=== PATIENT | male | born 1950 ===

== ENCOUNTER 2022-03-21 08:39 | Outpatient (REF) | payer OTHER, SELFPAY ==
[2022-03-21 11:44] LABS: Basophils Percent Auto 0.9 % (0-2); Eosinophils Percent Auto 0.4 % (0-4); Hematocrit 37.6 % (42.0-52.0); Hemoglobin 12.4 g/dl (14.0-18.0); Imm Gran Abs Auto 0.02 X10*3/uL (0.00-0.03); Imm Gran Pct Auto 0.9 % (0.0-0.4); Lymphocytes Absolute Auto 1.1 X10*3/uL (1.2-4.9); Lymphocytes Percent Auto 45.5 % (20-40); MANUAL DIFF FLAG SCAN; Mean Corpuscular Hemoglobin 32.5 pg (27.0-33.0); Mean Corpuscular Volume 98.4 fL (80.0-98.0); Monocytes Absolute Auto 0.7 X10*3/uL (0.1-1.2); Monocytes Percent Auto 27.9 % (2-11); Neutrophils Absolute Auto 0.6 x10*3/uL (2.0-8.3); Neutrophils Percent Auto 24.4 % (45-73); PLT CLUMP 1; Red Blood Count 3.82 X10*6/uL (4.60-5.80); Red Cell Distribution Width 25.9 % (11.0-16.0); SCAN SMEAR FLAG 1
[2022-03-21 11:58] LABS: Estimated Average Glucose 117 mg/dL; Hemoglobin A1c % 5.7 %
[2022-03-21 12:15] LABS: Alanine Aminotransferase 16 U/L (0-40); Albumin Level 4.6 g/dL (3.5-5.0); Alkaline Phosphatase 74 U/L (39-117); Anion Gap 12 (12-20); Aspartate Amino Transferase 19 U/L (5-37); Bilirubin Total 1.5 mg/dL (0.0-1.0); Blood Urea Nitrogen 17 mg/dL (9-16); Calcium 9.1 mg/dL (8.4-10.2); Carbon Dioxide 27 mmol/L (22-29); Chloride 104 mmol/L (96-108); Cholesterol 148 mg/dL; Estimated Glomerular Filt Rate > 60; Glucose Fasting 115 mg/dL (60-99); HDL Cholesterol 51 mg/dL; LDL Cholesterol Calculated 89 mg/dl; Potassium 4.3 mmol/L (3.3-5.1); Sodium 139 mmol/L (135-145); Total Protein 7.3 g/dL (6.5-8.0); Triglycerides 40 mg/dL
[2022-03-21 12:18] LABS: Platelet Count 171 X10*3/uL (160-400); White Blood Count 2.3 X10*3/uL (4.8-10.8)
[2022-03-21 12:19] LABS: SLIDE REVIEW VERIFIED
[2022-03-21 12:24] LABS: PSA,Total (Free>4and<10) 3.62 ng/mL (0.00-4.00)
== END 2022-03-21 08:40 | disposition home or self-care (01) ==
LOC: HO.HMGCLDS 08:39
PROVIDERS: PCP Internal Medicine; Visit Provider Internal Medicine
DX: Z00.00 Encounter for general adult medical examination without abnormal findings (principal); R73.9 Hyperglycemia, unspecified; D70.9 Neutropenia, unspecified; N40.0 Benign prostatic hyperplasia without lower urinary tract symptoms; Z12.5 Encounter for screening for malignant neoplasm of prostate
CPT/HCPCS: 36415; 80053; 80061; 83036; 84153; 85025

== ENCOUNTER 2023-04-24 12:06 | Outpatient (AMB) | payer MEDICARE, SELFPAY ==
--- NOTE | 2023-04-24 12:13 | A.OFFPC_ITS ---
Vital Signs 04/24/23 12:18 Height 5 ft 7 in Weight 156 lb 4 oz BMI 24.5 BP 130/64 Blood Pressure Location Rt brachial Position Sitting Pulse 92 Pulse Source Pulse Oximeter Pulse Oximetry (%) 97 Oxygen Delivery Method Room Air Intake Visit Reasons: back pain, freq urination Allergies sulfamethoxazole [From Bactrim] Adverse Reaction (Verified 04/24/23 12:13) Fatigued trimethoprim [From Bactrim] Adverse Reaction (Verified 04/24/23 12:13) Fatigued Medication List - Last Reconciled 04/24/23 by Katlin Villegas MD fluticasone propionate 50 mcg/actuation (Flonase Allergy Relief) 2 sprays intranasal DAILY tamsulosin 0.4 mg PO DAILY Tobacco use date assessed: 04/24/23 Fall risk assessment: No Falls in past year Last assessed Fall Risk: 04/24/23 Dental Screening Dental Screen Date: 04/24/23 Did you have a dental visit in the last 12 months?: Yes Did you have a dental problem in the last 6 months where you did not have access to dental care?: No Was dental information given to patient?: Patient has dentist HPI back pain, freq urination HPI Details Pt c/o L flank pain and increased urination for 24 hours. Patient denies fever chills abdominal pain dysuria or gross hematuria. PFSH Family History Mother Mental health disorder Social History Household Members Other:: , lives alone, Housing: House Patient Tobacco Use Status: Never used Tobacco e-Cigarette/Vaping Use: Never Used service: No Current occupational status: retired Cognitive needs: No Hearing needs: No Vision needs: Yes Questionnaire Thrive Questionnaire Date Thrive assessed: 03/21/22 AUDIT C Alcohol Use Questionnaire (AUDIT-C) 1. How often do you have a drink containing alcohol?: Never 3. How often do you have six or more drinks on one occasion?: Never Total Score: 0 ANNA-7 AMB Questionnaire ANNA-7 Date ANNA - 7 assessed: 03/21/22 Source: Developed by Drs. Alexandru Paniagua, Yeny Aerchiga, Gurdeep Crooks and colleagues, with an educational mine from [employer]. Review of Systems Const All systems reviewed & are unremarkable except as noted in HPI and below Eyes Reports no additional complaints ENT Reports no additional complaints Card Reports no additional complaints Resp Reports no additional complaints GI Reports no additional complaints Reports no additional complaints Musc Reports no additional complaints Physical exam (Primary Care) Vital Signs: Last Vital Signs Pulse 92 04/24/23 12:18 BP 130/64 04/24/23 12:18 Pulse Ox 97 04/24/23 12:18 Oxygen Delivery Method Room Air 04/24/23 12:18 BMI result Body Mass Index 24.5 Tobacco/Smoking Status: Tobacco use Status Tobacco use date assessed 04/24/23 04/24/23 12:15 Patient Tobacco Use Status Never used Tobacco 04/24/23 12:15 e-Cigarette/Vaping Use Never Used 04/24/23 12:15 Thrive Assessment: Date of Thrive Assessment Date Thrive assessed 03/21/22 04/24/23 12:15 Const General: no acute distress HENMT Head: Yes normal to inspection General nose exam: Normal external nose present Eyes General: appearance normal, both eyes and all related structures Resp Effort & Inspection: normal respiratory effort Auscultation: clear to auscultation bilaterally Cardio Rhythm: regular rhythm Heart sounds: S1 normal heart sound present and S2 normal heart sound present GI Other: L flank tenderness Inspection: Yes normal to inspection Palpation (GI): Soft to palpation Percussion: Yes normal to percussion Auscultation: normal bowel sounds Results AMB Urinalysis, Automated UA Leukoctes 0 Mark/uL Last Edit by [employer] on 04/24/23 12:55 UA Nitrite Negative Last Edit by [employer]CE[employer] Cevallos on 04/24/23 12:55 UA Urobilinogen 0.2 mg/dL Last Edit by [employer] Cevallos on 04/24/23 12: 55 UA Protein 0 mg/dL Last Edit by [employer]CE[employer] Cevallos on 04/24/23 12:55 UA pH 6.0 Last Edit by [employer]CE[employer] Cevallos on 04/24/23 12:55 UA Blood 25 Cricket/uL Last Edit by CONCE[employer] Cevallos on 04/24/23 12:55 1+ Adalgisa Fraga 04/24/23 12:55 UA Specific [place] 1.010 Last Edit by CONCEPCIÓN Cevallos on 04/24/23 12 :55 UA Ketone Negative Last Edit by CONCE[employer]ÓN Cevallos on 04/24/23 12:55 UA Bilirubin 0 mg/dL Last Edit by [employer]CE[employer]N Cevallos on 04/24/23 12:55 UA Glucose 0 mg/dL Last Edit by [employer]CE[employer] Cevallos on 04/24/23 12:55 Assessment and Plan Assessment & Plan (1) Left flank pain: Code(s): R10.9 - Unspecified abdominal pain Plan: Urine dipstick was positive for blood. Urine culture will be obtained. Renal ultrasound will be checked to rule out obstruction. he was advised to increase fluid intake and increase tamsulosin to 0.8 mg a day. If ultrasound is positive for obstruction he will be referred to urology. Orders: Orders AMB Urinalysis Automated Today Z13.9 - Encounter for screening, unspecified Urine Culture Today R35.0 - Frequency of micturition PSA,Total (Free>4and<10) Today N40.0 - Benign prostatic hyperplasia without lower urinary tract symptoms US renal BI Today N40.0 - Benign prostatic hyperplasia without lower urinary tract symptoms, R10.9 - Unspecified abdominal pain, R73.9 - Hyperglycemia, unspecified Comprehensive Met. Panel Today N40.0 - Benign prostatic hyperplasia without lower urinary tract symptoms, R10.9 - Unspecified abdominal pain, R73.9 - Hyperglycemia, unspecified Hemoglobin A1c Today N40.0 - Benign prostatic hyperplasia without lower urinary tract symptoms, R10.9 - Unspecified abdominal pain, R73.9 - Hyperglycemia, unspecified Complete Blood Count Auto Diff Today N40.0 - Benign prostatic hyperplasia without lower urinary tract symptoms, R10.9 - Unspecified abdominal pain, R73.9 - Hyperglycemia, unspecified Medications: Changed From tamsulosin 0.4 mg PO DAILY 90 caps 3RF To tamsulosin 0.8 mg (2 x 0.4 mg) PO DAILY 180 caps 3RF Coding Level of Care Code Est Pt Level 3 (79995) Diagnoses Left flank pain R10.9
[2023-04-24 12:18] VITALS: BP 130/64; PULSE 92; O2SAT 97; BMI 24.5
== END 2023-04-24 13:21 | disposition home or self-care (01) ==
PROVIDERS: PCP Internal Medicine; Visit Provider Internal Medicine
DX: Z13.9 Encounter for screening, unspecified (principal); R10.9 Unspecified abdominal pain
CPT/HCPCS: 81003; 99213

== ENCOUNTER 2023-04-24 12:49 | Outpatient (REF) | payer MEDICARE, SELFPAY | END 2023-04-24 12:50 | disposition home or self-care (01) | LOC: HO.LAB 12:49 | PROVIDERS: Visit Provider Internal Medicine | DX: R35.0 Frequency of micturition (principal) | CPT/HCPCS: 87086 ==

== ENCOUNTER 2023-04-24 13:06 | Outpatient (REF) | payer MEDICARE, SELFPAY ==
[2023-04-24 16:21] LABS: Alanine Aminotransferase 17 U/L (0-40); Albumin Level 4.8 g/dL (3.5-5.0); Alkaline Phosphatase 88 U/L (39-117); Anion Gap 11 (12-20); Aspartate Amino Transferase 22 U/L (5-37); Bilirubin Total 1.5 mg/dL (0.0-1.0); Blood Urea Nitrogen 11 mg/dL (9-16); Carbon Dioxide 29 mmol/L (22-29); Chloride 103 mmol/L (96-108); Estimated Average Glucose 111 mg/dL; Estimated Glomerular Filt Rate > 60; Glucose Random 108 mg/dL (60-115); Hemoglobin A1c % 5.5 % (<6.0); Potassium 4.2 mmol/L (3.3-5.1); Sodium 139 mmol/L (135-145); Total Protein 7.9 g/dL (6.5-8.0)
[2023-04-24 16:46] LABS: Hemoglobin 13.4 g/dl (14.0-18.0); PSA,Total (Free>4and<10) 8.86 ng/mL (0.00-4.00)
[2023-04-24 16:48] LABS: Hematocrit 39.4 % (42.0-52.0); Mean Corpuscular Hemoglobin 32.7 pg (27.0-33.0); Mean Corpuscular Volume 96.1 fL (80.0-98.0); PLT CLUMP 1; Red Cell Distribution Width 24.8 % (11.0-16.0)
[2023-04-24 17:35] LABS: PLT ABN DIST 1; WBC ABN SCTR FOR CBC 1
[2023-04-24 17:42] LABS: Platelet Count 274 X10*3/uL (160-400); White Blood Count 5.8 X10*3/uL (4.8-10.8)
[2023-04-24 17:44] LABS: Atypical Lymph Absolute Manual 0.1 x10*3/uL; Atypical Lymphs Percent Manual 1 % (0-6); Band Neutrophils Percent 6 % (3-5); Lymphocytes Absolute Manual 0.7 X10*3/uL (1.2-4.9); Lymphocytes Percent Manual 12 % (20-40); Monocytes Absolute Manual 1.2 X10*3/uL (0.1-1.2); Monocytes Percent Manual 20 % (2-11); Neutrophils Absolute Manual 3.9 X10*3/uL (2.0-8.3); Neutrophils Percent Manual 61 % (45-73)
[2023-04-24 17:45] LABS: Platelet Estimate NORMAL (NORMAL); Platelet Morphology Comment NORMAL; RBC Morphology NORMAL
[2023-04-25 11:09] LABS: Free Prostate Spec Ag 2.8 ng/mL; Percent Free Prostate Spec Ag 31 % (calc) (>25)
== END 2023-04-24 13:07 | disposition home or self-care (01) ==
LOC: HO.HMGCLDS 13:06
PROVIDERS: PCP Internal Medicine; Visit Provider Internal Medicine
DX: N40.0 Benign prostatic hyperplasia without lower urinary tract symptoms (principal); R10.9 Unspecified abdominal pain; R73.9 Hyperglycemia, unspecified; Z12.5 Encounter for screening for malignant neoplasm of prostate
CPT/HCPCS: 36415; 80053; 83036; 84153; 84154; 85007; 85025; 85027

== ENCOUNTER 2023-04-25 13:50 | Outpatient (REF) | payer MEDICARE, SELFPAY ==
--- NOTE | ~2023-04-25 | US_ITS ---
EXAMINATION: US RETROPERITONEAL LIMITED (RENAL ONLY) CLINICAL INFORMATION: Unspecified abdominal pain. COMPARISON: None available. TECHNIQUE: Real-time imaging of the kidneys. FINDINGS: RIGHT KIDNEY: 9.9 x 4.7 x 5.9 cm (SAG x AP x TRV). The kidney is normal in size, contour, and echogenicity. Renal cortical thickness is normal. No calculi or focal parenchymal lesions. No hydronephrosis. LEFT KIDNEY: 11.7 x 4.7 x 5.7 cm (SAG x AP x TRV). The kidney is normal in size, contour, and echogenicity. Renal cortical thickness is normal. No calculi or focal parenchymal lesions. No hydronephrosis. US/US renal BI IMPRESSION: Unremarkable renal ultrasound.
== END 2023-04-25 13:51 | disposition home or self-care (01) ==
LOC: HO.HMGCX 13:50
PROVIDERS: PCP Internal Medicine; Visit Provider Internal Medicine
DX: R10.9 Unspecified abdominal pain (principal); N40.0 Benign prostatic hyperplasia without lower urinary tract symptoms; R73.9 Hyperglycemia, unspecified
CPT/HCPCS: 76775

== ENCOUNTER 2023-05-27 08:48 | Outpatient (AMB) | payer MEDICARE, SELFPAY ==
[2023-05-27 09:10] VITALS: BP 128/66; PULSE 88; O2SAT 97; BMI 25.4
--- NOTE | 2023-05-27 09:10 | A.OFFPC_ITS ---
Vital Signs 05/27/23 09:10 Height 5 ft 7 in Weight 162 lb BMI 25.4 BP 128/66 Blood Pressure Location Lt brachial Position Sitting Pulse 88 Pulse Source Pulse Oximeter Pulse Oximetry (%) 97 Oxygen Delivery Method Room Air Intake Visit Reasons: one month fu Intake Note: Pt is here today for 1 month follow up visit. Allergies sulfamethoxazole [From Bactrim] Adverse Reaction (Verified 05/27/23 09:25) Fatigued trimethoprim [From Bactrim] Adverse Reaction (Verified 05/27/23 09:25) Fatigued Medication List - Last Reconciled 05/27/23 by Katlin Villegas MD fluticasone propionate 50 mcg/actuation (Flonase Allergy Relief) 2 sprays intranasal DAILY tamsulosin 0.8 mg (2 x 0.4 mg) PO DAILY Tobacco use date assessed: 04/24/23 HPI one month fu HPI Details Pt presents for the follow-up of left flank pain which resolved completely. Patient has an appointment scheduled with urologist for microscopic hematuria and elevated PSA level. He denies BPH symptoms, controlled on Flomax. PFSH Family History Mother Mental health disorder Social History Household Members Other:: , lives alone, Housing: House Patient Tobacco Use Status: Never used Tobacco e-Cigarette/Vaping Use: Never Used service: No Current occupational status: retired Cognitive needs: No Hearing needs: No Vision needs: Yes Questionnaire PHQ-9 Over the last 2 weeks, how often have you been bothered by any of the following problems? 1. Little interest or pleasure in doing things: not at all 2. Feeling down, depressed, or hopeless: not at all 3. Trouble falling or staying asleep, or sleeping too much: not at all 4. Feeling tired or having little energy: not at all 5. Poor appetite or overeating: not at all 6. Feeling bad about yourself - or that you are a failure or have let yourself or your family down: not at all 7. Trouble concentrating on things, such as reading the newspaper or watching television: not at all 8. Moving or speaking so slowly that other people could have noticed. Or the opposite - being so fidgety or restless that you have been moving around a lot more than usual: not at all 9. Thoughts that you would be better off or of hurting yourself in some way: not at all Total score: 0 Depression Screening Interpretation: Negative Depression Screening Done: Yes Source: Developed by Drs. Alexandru Paniagua, Yeny Arechiga, Gurdeep Crooks and colleagues, with an educational mine from [employer]. Thrive Questionnaire Date Thrive assessed: 05/27/23 I am a: Patient What is your living situation today?: I have a steady place to live Within the past 12 months, did the food you bought not last and you didn't have the money to get more?: Never true Within the past 12 months, did you worry whether your food would run out before you got money to buy more?: Never true Do you have trouble paying for medicines?: No Do you have trouble getting transportation to medical appointments?: No Do you have trouble paying your heating and electricity bill?: No Do you have trouble taking care of your child, family member or friend?: No Do you have trouble with day-to-day activities such as bathing, preparing meals, shopping, managing finances, etc.?: No Are you currently unemployed and looking for a job?: No Are you interested in more education?: Yes Please select the resources that you would like help with: Education ANNA-7 AMB Questionnaire ANNA-7 Date ANNA - 7 assessed: 05/27/23 Feeling nervous, anxious, or on edge: 0 = Not at all Not being able to stop or control worryin = Not at all Worrying too much about different things: 0 = Not at all Trouble relaxin = Not at all Being so restless that it is hard to sit still: 0 = Not at all Becoming easily annoyed or irritable: 0 = Not at all Feeling afraid as if something awful might happen: 0 = Not at all Total ANNA-7 score (0-4 normal; 5-9 mild; 10-14 moderate; 15-21 severe): 0 Source: Developed by Drs. Alexandru Paniagua, Yeny Arechiga, Gurdeep Crooks and colleagues, with an educational mine from [employer]. Review of Systems Const All systems reviewed & are unremarkable except as noted in HPI and below Reports no additional complaints Eyes Reports no additional complaints ENT Reports no additional complaints Card Reports no additional complaints Resp Reports no additional complaints GI Reports no additional complaints Reports no additional complaints Physical exam (Primary Care) Vital Signs: Last Vital Signs Pulse 88 05/27/23 09:10 BP 128/66 05/27/23 09:10 Pulse Ox 97 05/27/23 09:10 Oxygen Delivery Method Room Air 05/27/23 09:10 BMI result Body Mass Index 25.4 Tobacco/Smoking Status: Tobacco use Status Tobacco use date assessed 04/24/23 05/27/23 09:10 Patient Tobacco Use Status Never used Tobacco 05/27/23 09:10 e-Cigarette/Vaping Use Never Used 05/27/23 09:10 Depression Screening Interpretation: Negative Thrive Assessment: Date of Thrive Assessment Date Thrive assessed 03/21/22 05/27/23 09:10 Const General: no acute distress HENMT Head: Yes normal to inspection Ears: hearing grossly normal bilaterally General nose exam: Normal external nose present Throat: Yes posterior oropharynx normal Resp Effort & Inspection: normal respiratory effort Auscultation: clear to auscultation bilaterally Cardio Rhythm: regular rhythm Heart sounds: S1 normal heart sound present and S2 normal heart sound present GI Inspection: Yes normal to inspection Palpation (GI): Soft to palpation Percussion: Yes normal to percussion Auscultation: normal bowel sounds Assessment and Plan Assessment & Plan (1) Elevated PSA: Code(s): R97.20 - Elevated prostate specific antigen [PSA] Plan: Follow-up with urology (2) Microscopic hematuria: Code(s): R31.29 - Other microscopic hematuria Plan: Follow-up with urology (3) Annual physical exam: Code(s): Z00.00 - Encounter for general adult medical examination without abnormal findings (4) Hyperglycemia: Code(s): R73.9 - Hyperglycemia, unspecified Orders: Orders Complete Blood Count Auto Diff 365 Days R73.9 - Hyperglycemia, unspecified, Z00.00 - Encounter for general adult medical examination without abnormal findings Hemoglobin A1c 365 Days R73.9 - Hyperglycemia, unspecified Comprehensive [place]. Panel Fast 365 Days R73.9 - Hyperglycemia, unspecified, Z00.00 - Encounter for general adult medical examination without abnormal findings Lipid Panel 365 Days R73.9 - Hyperglycemia, unspecified, Z00.00 - Encounter for general adult medical examination without abnormal findings Coding Level of Care Code Est Pt Level 3 (14329) Diagnoses Elevated PSA R97.20 Microscopic hematuria R31.29 Annual physical exam Z00.00 Hyperglycemia R73.9
== END 2023-05-27 09:52 | disposition home or self-care (01) ==
PROVIDERS: PCP Internal Medicine; Visit Provider Internal Medicine
DX: R97.20 Elevated prostate specific antigen [PSA] (principal); R31.29 Other microscopic hematuria; Z00.00 Encounter for general adult medical examination without abnormal findings; R73.9 Hyperglycemia, unspecified
CPT/HCPCS: 99213

== ENCOUNTER 2023-05-27 10:46 | Outpatient (AMB) | payer MEDICARE, SELFPAY ==
--- NOTE | 2023-05-27 10:54 | MHC.OFFVIS ---
Intake Intake Visit Reasons: elevated PSA/microscopic hematuria Intake Note: New Patient presents for initial visit for elevated psa/microscopic hematuria Urology Medications: tamsulosin Blood Thinner: none [employer] Applications Engineer Required: No Accompanied by: Self / Same As Patient Allergies sulfamethoxazole [From Bactrim] Adverse Reaction (Verified 05/27/23 11:34) Fatigued trimethoprim [From Bactrim] Adverse Reaction (Verified 05/27/23 11:34) Fatigued Medication List - Last Reconciled 05/27/23 by SHAYNE Baig- fluticasone propionate 50 mcg/actuation (Flonase Allergy Relief) 2 sprays intranasal DAILY tamsulosin 0.4 mg PO DAILY HPI HPI Comments History of Present Illness Details Ariel is a very pleasant 72-year-old male patient of . He presents to the office today as a new patient for elevated PSA. In discussion with the patient today reports to be doing and feeling well. He reports having had annual blood work with PCP at which time PSA was noted to be elevated and recommendations were made for Urology referral for further assessment evaluation. PSAs are as follows: 03/14--3.6 04/14--9.0 % free PSA 31% Discussed at length potential causes of elevated PSA. Reviewed PCP T risk calculator. 85% chance negative prostate biopsy, 9% low-grade prostate cancer, and 6% high-grade prostate cancer. He reports having followed up with a urologist many years ago after an episode of retention status post hernia repair. He otherwise has been following up with PCP. He discusses feeling happy with current voiding parameters on 0.4 mg of Flomax daily. However he discusses when he does not take this medication he does feel urinary hesitancy and incomplete bladder emptying. In office urinalysis results reviewed with the patient today. In review of patient's chart it appears renal ultrasound was ordered however discussed obtaining bladder ultrasound for further assessment evaluation as well as redraw of PSA with no sex the night before, no caffeine morning of, and no heavy lifting 1-2 days prior. He discusses the loss of his approximately 4 years ago. He would like me to call his daughter Karen Jasso who is a physician senior administrative assistant at the [employer] to discuss plan of care. Call to [phone] message left will await call back. He currently denies urinary urgency, urinary frequency, incontinence, nocturia, hematuria, dysuria, foul smelling urine, changes to urinary stream, flank pain, fever, and or chills. PFSH Family History Mother Mental health disorder Social History Household Members Other:: , lives alone, Housing: House Patient Tobacco Use Status: Never used Tobacco e-Cigarette/Vaping Use: Never Used service: No Current occupational status: retired Cognitive needs: No Hearing needs: No Vision needs: Yes Review of Systems Const All systems reviewed & are unremarkable except as noted in HPI and below Results AMB Urinalysis, Automated UA Leukoctes 0 Mark/uL Last Edit by [employer] on 05/27/23 11:29 UA Nitrite Negative Last Edit by [employer] on 05/27/23 11:29 UA Urobilinogen 0.2 mg/dL Last Edit by [employer] on 05/27/23 11:29 UA Protein 15 mg/dL Last Edit by [employer] on 05/27/23 11:29 UA pH 6.0 Last Edit by [employer] on 05/27/23 11:29 UA Blood 0 Cricket/uL Last Edit by [employer] on 05/27/23 11:29 UA Specific [place] 1.025 Last Edit by [employer] on 05/27/23 11:29 UA Ketone Negative Last Edit by [employer] on 05/27/23 11:29 UA Bilirubin 0 mg/dL Last Edit by [employer] on 05/27/23 11:29 UA Glucose 0 mg/dL Last Edit by [employer] on 05/27/23 11:29 Results Reviewed Results Reviewed: Laboratory Last Values Urine pH (Auto) 6.0 05/27/23 10:57 Specific [place] (Auto) 1.025 05/27/23 10:57 Urine Protein (Auto) 15 mg/dL 05/27/23 10:57 Glucose (UA)(Auto) 0 mg/dL 05/27/23 10:57 Urine Ketones (Auto) Negative 05/27/23 10:57 Urine Blood (Auto) 0 Cricket/uL 05/27/23 10:57 Urine Nitrite (Auto) Negative 05/27/23 10:57 Urine Bilirubin (Auto) 0 mg/dL 05/27/23 10:57 Urine Urobilinogen (Auto) 0.2 mg/dL 05/27/23 10:57 Leukocyte Esterase (Auto) 0 Mark/uL 05/27/23 10:57 Date of Service: 04/25/23 EXAMINATION: US RETROPERITONEAL LIMITED (RENAL ONLY) FINDINGS: RIGHT KIDNEY: 9.9 x 4.7 x 5.9 cm (SAG x AP x TRV). The kidney is normal in size, contour, and echogenicity. Renal cortical thickness is normal. No calculi or focal parenchymal lesions. No hydronephrosis. LEFT KIDNEY: 11.7 x 4.7 x 5.7 cm (SAG x AP x TRV). The kidney is normal in size, contour, and echogenicity. Renal cortical thickness is normal. No calculi or focal parenchymal lesions. No hydronephrosis. IMPRESSION: Unremarkable renal ultrasound. Assessment & Plan Assessment & Plan (1) Elevated PSA: Code(s): R97.20 - Elevated prostate specific antigen [PSA] (2) BPH (benign prostatic hyperplasia): Code(s): N40.0 - Benign prostatic hyperplasia without lower urinary tract symptoms Plan In office urinalysis results reviewed with the patient today; as noted above. Recent renal imaging results reviewed with the patient today; as noted above. Reviewed PSAs; as noted above Discussed at length potential causes of elevated PSA Discussed obtaining bladder ultrasound for further assessment evaluation. Discussed redraw of PSA with no sex the night before, no caffeine morning of, and no heavy lifting 1-2 days prior. Continue Flomax 0.4 mg daily as patient reports be happy with current voiding parameters while taking this medication. Call to patient's daughter as requested, no answer, message left, will await call back Follow-up 4-6 weeks with imaging and labs to be completed prior; or sooner with any issues, concerns, and or questions Orders: Orders AMB Urinalysis Automated Today Z13.9 - Encounter for screening, unspecified Patient Instructions: The patient had an opportunity to ask questions regarding the treatment plan. All questions were answered. Physical exam, labs, and imaging were discussed and reviewed in detail. As well as risks, benefits, and discussion of treatment choices. No major barriers to understanding were identified. The patient expressed understanding and agreement with the above treatment plan. The patient was made aware they should contact our office by phone for worsening of their current condition, the appearance of new symptoms, or with any questions or concerns. Compliance is encouraged with any medications and follow up testing that is ordered. It is a privilege to be allowed the opportunity to participate in? your urological care.? Again, if you have any questions or concerns If you have any questions or concerns please do not hesitate to contact me. The office is [phone]. This note is constructed using voice recognition software. While every effort has been made to ensure accuracy edge grinder machine errors may have been included. Yours sincerely, CATHIE Baig Coding Level of Care Code New Pt Level 3 (12180) Diagnoses Elevated PSA R97.20 BPH (benign prostatic hyperplasia) N40.0
== END 2023-05-27 11:40 | disposition home or self-care (01) ==
PROVIDERS: PCP Internal Medicine; Visit Provider Nurse Practitioner Family
DX: R97.20 Elevated prostate specific antigen [PSA] (principal); N40.0 Benign prostatic hyperplasia without lower urinary tract symptoms; Z13.9 Encounter for screening, unspecified
CPT/HCPCS: 99203

== ENCOUNTER → 2023-05-27 10:46 | Outpatient (BNVA) | payer MEDICARE, SELFPAY | PROVIDERS: PCP Internal Medicine; Visit Provider Nurse Practitioner Family | DX: R97.20 Elevated prostate specific antigen [PSA] (principal); N40.0 Benign prostatic hyperplasia without lower urinary tract symptoms; R31.29 Other microscopic hematuria | CPT/HCPCS: 81003; 99202 ==

== ENCOUNTER 2023-07-07 08:21 | Outpatient (REF) | payer MEDICARE, SELFPAY ==
--- NOTE | ~2023-07-07 | US_ITS ---
EXAMINATION: US PELVIS LIMITED (BLADDER) CLINICAL INFORMATION: Other microscopic hematuria Elevated PSA, BPH. COMPARISON: Renal ultrasound 04/25/2023 TECHNIQUE: Real-time imaging of the bladder. FINDINGS: BLADDER: The bladder is severely severely overdistended Bilateral ureteral jets are demonstrated. Prevoid bladder volume is 940 mL. Postvoid bladder volume is 760 mL. The bladder wall was trabeculated with numerous tiny diverticula. The prostate is markedly enlarged with a volume of 159 mL. Question of 4.7 x 4.3 x 4.3 cm mass with vascularity in the center of the prostate. US/US bladder IMPRESSION: 1. Markedly enlarged prostate with a volume of 159 mL. 2. The bladder wall is trabeculated with numerous tiny diverticula. 3. The bladder was severely overdistended, however, the patient said that he did not feel full. 4. Large post void residual. 5. Question of 4.7 cm mass with vascularity in the center of the prostate. Ultrasound could be performed for further evaluation.
[2023-07-07 11:39] LABS: PSA,Total (Free>4and<10) 7.36 ng/mL (0.00-4.00)
[2023-07-09 11:29] LABS: Free Prostate Spec Ag 1.8 ng/mL; Percent Free Prostate Spec Ag 21 % (calc) (>25); Prostate Specific Ag Total 8.7 ng/mL (< OR = 4.0)
== END 2023-07-07 08:22 | disposition home or self-care (01) ==
LOC: HO.HMGCX 08:21
PROVIDERS: PCP Internal Medicine; Visit Provider Nurse Practitioner Family
DX: R31.29 Other microscopic hematuria (principal); R97.20 Elevated prostate specific antigen [PSA]; N40.0 Benign prostatic hyperplasia without lower urinary tract symptoms; Z12.5 Encounter for screening for malignant neoplasm of prostate
CPT/HCPCS: 36415; 76857; 84153; 84154

== ENCOUNTER 2023-07-15 08:16 | Outpatient (AMB) | payer MEDICARE, SELFPAY ==
--- NOTE | 2023-07-15 08:17 | MHC.OFFVIS ---
Intake Intake Visit Reasons: Follow up PSA and US(set) Intake Note: Patient presents for follow up visit for elevated psa, lab and ultrasound results (psa 7.36) (imaging 07/07/23) Urology Medications: tamsulosin Blood Thinner: none Billposter Required: No Accompanied by: Self / Same As Patient Allergies sulfamethoxazole [From Bactrim] Adverse Reaction (Verified 07/15/23 09:08) Fatigued trimethoprim [From Bactrim] Adverse Reaction (Verified 07/15/23 09:08) Fatigued Medication List - Last Reconciled 07/15/23 by SHAYNE Baig- fluticasone propionate 50 mcg/actuation (Flonase Allergy Relief) 2 sprays intranasal DAILY tamsulosin 0.4 mg PO DAILY HPI HPI Comments History of Present Illness Details Ariel is a very pleasant 72-year-old male patient of Dr. Flannery. He presents to the office today for follow-up of his elevated PSA. Of note, patient was seen approximately 1 month ago at which time a retroperitoneal ultrasound and redraw of PSA were ordered for further assessment evaluation. These results were reviewed with the patient today. The bladder is severely over distended. Bilateral ureteral jets are demonstrated. Pre void bladder volume is approximately 950 mL. Postvoid bladder volume is 760 mL. The bladder wall is trabeculated with numerous diverticula. The prostate is markedly enlarged at a volume of 160 mL. Question of 4.7 cm mass with vascularity in the center of the prostate. PSAs are as follows: 03/14--3.6 05/15--8.9 05/15--9.0 % free PSA 31 07/16--7.36 07/16--8.7 % free PSA 21%. Discussed at length risks and benefits of surveillance monitoring verses trial finasteride versus prostate biopsy. Reviewed PCPT risk calculator with the patient today. 77% chance prostate biopsy is negative, 14% chance low-grade prostate cancer, and 9% chance of high-grade prostate cancer. Discussed at length potential causes for elevated PSA. Call to patient's daughter Karen per patient request at [phone]. Discussed at length treatment options as well as findings on retroperitoneal ultrasound and recent PSA. Will increase Flomax to 0.8 mg daily given recent findings on bladder ultrasound. He currently denies urinary urgency, urinary frequency, incontinence, nocturia, hematuria, dysuria, foul smelling urine, changes to urinary stream, flank pain, fever, and or chills. PFSH Family History Mother Mental health disorder Social History Household Members Other:: , lives alone, Housing: House Patient Tobacco Use Status: Never used Tobacco e-Cigarette/Vaping Use: Never Used service: No Current occupational status: retired Cognitive needs: No Hearing needs: No Vision needs: Yes Review of Systems Const All systems reviewed & are unremarkable except as noted in HPI and below Physical Exam Const General: cooperative, healthy appearing, comfortable, no acute distress, well developed, alert and awake Orientation/consciousness: patient oriented x3 Limitations: no limitations HEENT Head: Yes normal to inspection, Yes normocephalic and Yes atraumatic Ears: hearing grossly normal bilaterally Eyes General: appearance normal, both eyes and all related structures Neck Neck: Yes normal visual inspection and Yes trachea midline Chest Chest palpation & inspection: normal inspection of the chest Resp Effort & Inspection: normal respiratory effort and able to speak in complete sentences Cardio Rate: regular rate GI Inspection: Yes normal to inspection General: Yes no CVA tenderness Back/Spine/Pelvis Back: no CVA tenderness Skin General skin exam: no rashes or lesions noted Neuro General: patient oriented x3 Extrem General: Yes normal to inspection Psych Appearance: grossly normal and well kempt Mental Status: mental status grossly normal Speech and movement: Normal speech and movement present and Clear speech present Affect: normal affect Attitude: cooperative Thought process: Normal thought process present Thought content: Normal thought content present Insight: Fair insight present (Psych) Judgement: Fair judgement present (Psych) Results AMB Urinalysis, Automated UA Leukoctes 15 Mark/uL Last Edit by Geovanna Fuller on 07/15/23 08:48 UA Nitrite Negative Last Edit by Geovanna Fuller on 07/15/23 08:48 UA Urobilinogen 0.2 mg/dL Last Edit by Geovanna Fuller on 07/15/23 08:48 UA Protein 30 mg/dL Last Edit by Geovanna Fuller on 07/15/23 08:48 UA pH 6.0 Last Edit by Geovanna Sonimel on 07/15/23 08:48 UA Blood 0 Cricket/uL Last Edit by Geovanna Fuller on 07/15/23 08:48 UA Specific [place] 1.030 Last Edit by Geovanna Naemel on 07/15/23 08:48 UA Ketone Negative Last Edit by Geovanna Fuller on 07/15/23 08:48 UA Bilirubin 0 mg/dL Last Edit by Geovanna Fuller on 07/15/23 08:48 UA Glucose 0 mg/dL Last Edit by Geovanna Fuller on 07/15/23 08:48 Results Reviewed Results Reviewed: Laboratory Last Values Urine pH (Auto) 6.0 07/15/23 08:20 Specific [place] (Auto) 1.030 07/15/23 08:20 Urine Protein (Auto) 30 mg/dL 07/15/23 08:20 Glucose (UA)(Auto) 0 mg/dL 07/15/23 08:20 Urine Ketones (Auto) Negative 07/15/23 08:20 Urine Blood (Auto) 0 Cricket/uL 07/15/23 08:20 Urine Nitrite (Auto) Negative 07/15/23 08:20 Urine Bilirubin (Auto) 0 mg/dL 07/15/23 08:20 Urine Urobilinogen (Auto) 0.2 mg/dL 07/15/23 08:20 Leukocyte Esterase (Auto) 15 Mark/uL 07/15/23 08:20 Date of Service: 07/07/23 EXAMINATION: US PELVIS LIMITED (BLADDER) CLINICAL INFORMATION: Other microscopic hematuria Elevated PSA, BPH. COMPARISON: Renal ultrasound 04/25/2023 TECHNIQUE: Real-time imaging of the bladder. FINDINGS: BLADDER: The bladder is severely severely overdistended Bilateral ureteral jets are demonstrated. Prevoid bladder volume is 940 mL. Postvoid bladder volume is 760 mL. The bladder wall was trabeculated with numerous tiny diverticula. The prostate is markedly enlarged with a volume of 159 mL. Question of 4.7 x 4.3 x 4.3 cm mass with vascularity in the center of the prostate. IMPRESSION: 1. Markedly enlarged prostate with a volume of 159 mL. 2. The bladder wall is trabeculated with numerous tiny diverticula. 3. The bladder was severely overdistended, however, the patient said that he did not feel full. 4. Large post void residual. 5. Question of 4.7 cm mass with vascularity in the center of the prostate. Ultrasound could be performed for further evaluation. Assessment & Plan Assessment & Plan (1) Elevated PSA: Code(s): R97.20 - Elevated prostate specific antigen [PSA] (2) Enlarged prostate: Code(s): N40.0 - Benign prostatic hyperplasia without lower urinary tract symptoms (3) Diverticula, bladder: Code(s): N32.3 - Diverticulum of bladder (4) Bladder trabeculation: Code(s): N32.89 - Other specified disorders of bladder (5) Incomplete bladder emptying: Code(s): R33.9 - Retention of urine, unspecified Plan In office urinalysis results reviewed with the patient today; as noted above. Recent PSA results reviewed with the patient today; as noted above. Recent retroperitoneal ultrasound results reviewed with the patient today; as noted above. Discussed at length multiple treatment options for elevated PSA and findings on retroperitoneal ultrasound Discussed surveillance monitoring verses trial of finasteride versus prostate biopsy verses MRI of the prostate; discussed risks and benefits of these interventions at length with patient and daughter All questions were answered Increase Flomax to 0.8 mg daily as discussed and prescribed. Will follow-up in 1-2 weeks to discuss plan of care as patient would like time to think about his options and treatment plan Educated to call office with any questions, concerns, and or issues. Orders: Orders AMB Urinalysis Automated Today Z13.9 - Encounter for screening, unspecified Medications: Changed From tamsulosin 0.4 mg PO DAILY To tamsulosin 0.8 mg (2 x 0.4 mg) PO DAILY 60 caps 1RF 30 days Patient Instructions: The patient had an opportunity to ask questions regarding the treatment plan. All questions were answered. Physical exam, labs, and imaging were discussed and reviewed in detail. As well as risks, benefits, and discussion of treatment choices. No major barriers to understanding were identified. The patient expressed understanding and agreement with the above treatment plan. The patient was made aware they should contact our office by phone for worsening of their current condition, the appearance of new symptoms, or with any questions or concerns. Compliance is encouraged with any medications and follow up testing that is ordered. It is a privilege to be allowed the opportunity to participate in? your urological care.? Again, if you have any questions or concerns If you have any questions or concerns please do not hesitate to contact me. The office is [phone]. This note is constructed using voice recognition software. While every effort has been made to ensure accuracy chemical research technician errors may have been included. Yours sincerely, SHAYNE Baig- Coding Level of Care Code Est Pt Level 4 (95234) Diagnoses Elevated PSA R97.20 Enlarged prostate N40.0 Diverticula, bladder N32.3 Bladder trabeculation N32.89 Incomplete bladder emptying R33.9
== END 2023-07-15 09:10 | disposition home or self-care (01) ==
PROVIDERS: PCP Internal Medicine; Visit Provider Nurse Practitioner Family
DX: R97.20 Elevated prostate specific antigen [PSA] (principal); N40.0 Benign prostatic hyperplasia without lower urinary tract symptoms; N32.3 Diverticulum of bladder; N32.89 Other specified disorders of bladder; R33.9 Retention of urine, unspecified
CPT/HCPCS: 99214

== ENCOUNTER → 2023-07-15 08:16 | Outpatient (BNVA) | payer MEDICARE, SELFPAY | PROVIDERS: PCP Internal Medicine; Visit Provider Nurse Practitioner Family | DX: R97.20 Elevated prostate specific antigen [PSA] (principal); N40.1 Benign prostatic hyperplasia with lower urinary tract symptoms; R33.8 Other retention of urine; N32.3 Diverticulum of bladder; N32.89 Other specified disorders of bladder | CPT/HCPCS: 81003; 99212 ==

== ENCOUNTER 2023-08-21 07:27 | Outpatient (REF) | payer MEDICARE, SELFPAY ==
[2023-08-21 07:56] VITALS: BP 140/82; PULSE 75; RESP 16; TEMP 36.5; O2SAT 99; BMI 24.3
--- NOTE | 2023-08-21 08:29 | W.PM.OPN ---
Operative Note Operative Note Date of Service: 08/21/23 Narrative: Preoperative diagnosis: Elevated PSA Postoperative diagnosis: Elevated PSA Procedure: 1. transrectal ultrasound measurement of prostate 2. transrectal ultrasound-guided pudendal nerve block 3. transrectal ultrasound-guided prostate biopsy 12 core Surgeon: Dr. Aries Purvis Anesthetic: Local Indications for procedure: Elevated PSA - 2.4 Procedure: After informed consent was verified, the patient was brought into the procedure area and lay left-hand side down on the table. Patient identity confirmed. Perioperative antibiotics confirmed. Safety pause time out performed. GRANT performed to dilate rectal sphincter Iodine 10cc with Gel was placed per rectum Ultrasound probe was placed per rectum The prostate was measured in 3 dimensions Total volume equals 120 gm No cystic structures were noted No calcifications were noted at the surgical margin The prostate was otherwise heterogenous - demarcated peripheral zone - in nature An ultrasound-guided pudendal nerve block was performed using 10 cc of 1% lidocaine. 8 cc was placed at the base and 2 cc of the apex. A 12 core biopsy was performed with 6 cores each side. Two cores were taken at the apex, mid and base. Cores were spaced between lateral and medial. He tolerated the procedure well. Was able to ambulate to bathroom after 5 minutes. Printed instructions regarding antibiotic use and common side effects such as low-grade temperature, potential infection and bleeding were given Pathology: 12 core prostate biopsy.
[2023-08-21 08:35] VITALS: BP 164/82; PULSE 87; RESP 16; O2SAT 98
== END 2023-08-21 07:28 | disposition home or self-care (01) ==
LOC: HO.MS 07:27
PROVIDERS: PCP Internal Medicine; Visit Provider Urology
PROC: (CPT 55700; principal; 2023-08-21 08:00)
DX: C61 Malignant neoplasm of prostate (principal); R97.20 Elevated prostate specific antigen [PSA]
CPT/HCPCS: 55700; 76942; 88305; 88344

== ENCOUNTER → 2023-08-21 07:27 | Outpatient (BNV) | payer MEDICARE, SELFPAY | PROVIDERS: PCP Internal Medicine; Visit Provider Urology | DX: R97.20 Elevated prostate specific antigen [PSA] (principal) | CPT/HCPCS: 55700; 76942 ==

== ENCOUNTER 2023-09-10 12:34 | Outpatient (AMB) | payer MEDICARE, SELFPAY ==
--- NOTE | 2023-09-10 12:36 | A.OFFVIS_ITS ---
Intake Intake Visit Reasons: Prostate bx results(BX ) Intake Note: Patient presents today for a telehealth follow-up on Prostate Bx results Meds- Tamsulosin Allergies to Antibiotic- Bactrim Blood Thinner- None Hydrotherapist Required: No Allergies sulfamethoxazole [From Bactrim] Adverse Reaction (Verified 09/10/23 12:38) Fatigued trimethoprim [From Bactrim] Adverse Reaction (Verified 09/10/23 12:38) Fatigued HPI HPI Comments History of Present Illness Details Ariel is a very pleasant male. He has a patient of Dr. Villegas. He is seen for the following urologic conditions - prostate cancer Telemedicine Evaluation 15 min Consultation Doximity Yaz Video attempted Discussed results Low volume grade group 3 Recommend staging with prostate MRI. At that point we will consider options. Leaning towards external beam radiation Will get Prolaris to identify risk and see if suitable candidate for active surveillance Prostate Cancer Biopsy Date: 08/16 PSA: 07/16 8.7 21% Prostate Volume: 120gm Histologic type: Adenocarcinoma, acinar type Histologic grade: Fenton score: 7 (4+3) LBL 40%, 7(3+4) LOOMIS 10% Grade group: 3 and 2 Tumor quantitation: Number cores positive: 2 Total number of cores: 19 % of tissue involved: 3% Periprostatic fat inv.: Not identified Seminal vesicle inv.: Not identified Perineural inv.: Not identified Lymphovascular invasion: Not identified pT: pT1c PFSH Family History Mother Mental health disorder Social History Household Members Other:: , lives alone, Housing: House Patient Tobacco Use Status: Never used Tobacco e-Cigarette/Vaping Use: Never Used service: No Current occupational status: retired Cognitive needs: No Hearing needs: No Vision needs: Yes Review of Systems Const All systems reviewed & are unremarkable except as noted in HPI and below Reports no additional complaints Resp Reports no additional complaints GI Reports no additional complaints Reports as per HPI Musc Reports no additional complaints Physical Exam Telemedicine evaluation Appropriate responses Regular breathing rate and rhythm HEENT Head: Yes normal to inspection Ears: hearing grossly normal bilaterally Eyes General: appearance normal, both eyes and all related structures Neck Neck: Yes normal visual inspection Chest Chest palpation & inspection: normal inspection of the chest Resp Effort & Inspection: normal respiratory effort and able to speak in complete sentences Assessment & Plan Assessment & Plan (1) Prostate cancer: Code(s): C61 - Malignant neoplasm of prostate Plan Obtain MRI Obtain genetics Orders: Orders Blood Urea Nitrogen 09/10/23 C61 - Malignant neoplasm of prostate MR pelvis wo/w con 4 Weeks C61 - Malignant neoplasm of prostate Creatinine 09/10/23 C61 - Malignant neoplasm of prostate Patient Instructions: Imaging studies, laboratory and physical exam results were discussed and reviewed in detail. No major barriers to patient understanding were identified. An opportunity to ask questions regarding the treatment plan was provided. All questions were answered. The patient expressed understanding and agreement with the above treatment plan. The patient is aware they should contact our office by phone for worsening of their current condition or the appearance of new urologic symptoms. Compliance is encouraged with any medications and followup testing that is ordered. It is a privilege to participate in the urologic care of your patient. If you have any questions or concerns regarding treatment for the above conditions, or other urologic issues, please do not hesitate to contact me. The office telephone contact is [phone]. This note is constructed using voice recognition software. While every effort has been made to ensure accuracy topology teacher errors may have been included. Yours sincerely, Dr Aries Purvis MD, DON[facility] - Urology Providers of Expert, Compassionate Care for the Genitourinary System Telehealth Telehealth Location of provider rendering services: practice address Location of patient: address on file Patient Identification confirmed using: Name, : Yes Telehealth method: video Patient verbally consented to treatment: Yes Patient verbally consented to billing insurance company: Yes Patient informed of any privacy concerns related to visit: Yes Coding Level of Care Code Tele Est Pt Level 4 (18569) Diagnoses Prostate cancer C61
== END 2023-09-10 14:44 | disposition home or self-care (01) ==
LOC: HO.HUSH 12:35
PROVIDERS: PCP Internal Medicine; Visit Provider Urology
DX: C61 Malignant neoplasm of prostate (principal)
CPT/HCPCS: 99214

== ENCOUNTER → 2023-09-10 12:34 | Outpatient (BNVA) | payer MEDICARE, SELFPAY | PROVIDERS: PCP Internal Medicine; Visit Provider Urology ==

== ENCOUNTER 2023-10-22 14:01 | Outpatient (AMB) | payer MEDICARE, SELFPAY ==
--- NOTE | 2023-10-22 14:15 | MHC.OFFVIS ---
Intake Visit Reasons: 6w/MRI(set) Intake Note: Patient is Present for Follow Up Urology Medication: Tamsulosin Antibiotic Allergies: Sulfa, Trimethroprim Blood Thinners:None Allergies sulfamethoxazole [From Bactrim] Adverse Reaction (Verified 09/10/23 12:38) Fatigued trimethoprim [From Bactrim] Adverse Reaction (Verified 09/10/23 12:38) Fatigued HPI Comments Details: Ariel is a very pleasant male. He has a patient of Dr. Villegas. He is seen for the following urologic conditions - prostate cancer Accompanied by daughters for discussion of results Discussed findings from prostate MRI and [employer] genetics Prostate MRI has a negative finding. Negative predictive value of MRI is 95%. There is only a 1 in 20 chance of having prostate cancer with a negative MRI. [employer]. Molecular score 3.5 which is low and typically associated with active surveillance. Clinical characteristics drive recommendation for monotherapy. Printed information provided Recommendation to initiate finasteride plus consult radiation oncology regarding possible external beam radiation. If this would be formed due to unfavorable intermediate characteristic would benefit from 6 months of GnRH therapy. Prostate Cancer - Grade Group 3 Low Volume Biopsy Date: 08/16 PSA: 07/16 8.7 21% Prostate Volume: 120gm Histologic type: Adenocarcinoma, acinar type Histologic grade: Philadelphia score: 7 (4+3) LBL 40%, 7(3+4) LOOMIS 10% Grade group: 3 and 2 Tumor quantitation: Number cores positive: 2 Total number of cores: 19 % of tissue involved: 3% Periprostatic fat inv.: Not identified Seminal vesicle inv.: Not identified Perineural inv.: Not identified Lymphovascular invasion: Not identified pT: pT1c Prostate MRI - 09/13 - on 125 g gland - BPH whorls - no definitive lesions seen - PSA density 6% [employer] 09/13 - Molecular Score 3.5 (which is low) - 10 yr DSM 6.4% - which is mid point of unfavorable intermediate curve - the overall personalized combined clinical risk (CCR) score compromise is a combination of the Prolaris molecular score + GARY score based on clinical characteristics PFSH Family History Mother Mental health disorder Social History Household Members Other:: , lives alone, Housing: House Patient Tobacco Use Status: Never used Tobacco e-Cigarette/Vaping Use: Never Used service: No Current occupational status: retired Cognitive needs: No Hearing needs: No Vision needs: Yes Review of Systems Const Denies chills and Denies fever(s) Card Reports no additional complaints and Denies syncope Resp Denies cough GI Denies abdominal pain and Denies heartburn Reports as per HPI and Denies change in libido Neuro Denies syncope Psych Denies change in libido Endo Denies change in libido Physical Exam Const General: cooperative, healthy appearing, comfortable and no acute distress Orientation/consciousness: patient oriented x3 HEENT Face and sinus: Yes normal facial exam Mouth: moist mucous membranes Neck Neck: Yes normal visual inspection, Yes full ROM and Yes trachea midline Chest Chest palpation & inspection: normal inspection of the chest Resp Effort & Inspection: normal respiratory effort, able to speak in complete sentences and no respiratory distress GI Inspection: Yes normal to inspection Back/Spine/Pelvis Cervical Spine: normal cervical lordosis Thoracic/Lumbar Spine: thoracic and lumbar spine normal to inspection Skin General skin exam: no rashes or lesions noted Neuro General: patient oriented x3, gait normal, tone normal and moves all extremities Extrem General: Yes normal to inspection and Yes capillary refill normal Assessment & Plan Assessment & Plan (1) Prostate cancer: Code(s): C61 - Malignant neoplasm of prostate Category: Medical Plan Referral to radiation oncology Initiate finasteride Orders: Referrals Radiation Oncology Referral C61 - Malignant neoplasm of prostate Medications: New finasteride 5 mg PO DAILY 90 days 90 tabs 1RF C61 - Malignant neoplasm of prostate, N13.8 - Other obstructive and reflux uropathy, N40.1 - Benign prostatic hyperplasia with lower urinary tract symptoms, R33.9 - Retention of urine, unspecified Patient Instructions: Imaging studies, laboratory and physical exam results were discussed and reviewed in detail. No major barriers to patient understanding were identified. An opportunity to ask questions regarding the treatment plan was provided. All questions were answered. The patient expressed understanding and agreement with the above treatment plan. The patient is aware they should contact our office by phone for worsening of their current condition or the appearance of new urologic symptoms. Compliance is encouraged with any medications and followup testing that is ordered. It is a privilege to participate in the urologic care of your patient. If you have any questions or concerns regarding treatment for the above conditions, or other urologic issues, please do not hesitate to contact me. The office telephone contact is [phone]. This note is constructed using voice recognition software. While every effort has been made to ensure accuracy photographic editor errors may have been included. Yours sincerely, Dr Aries Purvis MD, DON[facility] - Urology Providers of Expert, Compassionate Care for the Genitourinary System Coding Level of Care Code Est Pt Level 4 (30255) Complex EM visit Add On G2211 Diagnoses Prostate cancer C61
== END 2023-10-22 15:04 | disposition home or self-care (01) ==
PROVIDERS: PCP Internal Medicine; Visit Provider Urology
DX: C61 Malignant neoplasm of prostate (principal)
CPT/HCPCS: 99214; G2211

== ENCOUNTER → 2023-10-22 14:01 | Outpatient (BNVA) | payer MEDICARE, SELFPAY | PROVIDERS: PCP Internal Medicine; Visit Provider Urology | DX: C61 Malignant neoplasm of prostate (principal) | CPT/HCPCS: 99212 ==

== ENCOUNTER 2023-12-02 09:04 | Outpatient (AMB) | payer MEDICARE, SELFPAY ==
--- NOTE | 2023-12-02 09:41 | MHC.OFFVIS ---
Intake Visit Reasons: 6w follow up(Dr Thomas Visit follow up) Intake Note: Patient is Present for Follow Up Urology Medication: Finasteride, Tamsulosin Antibiotic Allergies: Sulfa, Trimethoprim Blood Thinners:None Patient saw Dr Thomas 11/19/2023 Allergies sulfamethoxazole [From Bactrim] Adverse Reaction (Verified 12/02/23 09:42) Fatigued trimethoprim [From Bactrim] Adverse Reaction (Verified 12/02/23 09:42) Fatigued HPI Comments Details: Ariel is a very pleasant male. He has a patient of Dr. Villegas. He is seen for the following urologic conditions - prostate cancer 12/14 Completed radiation oncology assessment Understands options of external beam radiation versus active surveillance Based on his reading of the potential complications with radiation would prefer surveillance protocol Understands this would entail repeat biopsy at 18 months 10/14 Discussed findings from prostate MRI and [employer] [facility] Prostate MRI has a negative finding. Negative predictive value of MRI is 95%. There is only a 1 in 20 chance of having prostate cancer with a negative MRI. ELENZA. Molecular score 3.5 which is low and typically associated with active surveillance. Clinical characteristics drive recommendation for monotherapy. Prostate Cancer - Grade Group 3 Low Volume Biopsy Date: 08/16 PSA: 07/16 8.7 21% Prostate Volume: 120gm Histologic type: Adenocarcinoma, acinar type Histologic grade: Gaetano score: 7 (4+3) LBL 40%, 7(3+4) LOOMIS 10% Grade group: 3 and 2 Tumor quantitation: Number cores positive: 2 Total number of cores: 19 % of tissue involved: 3% Periprostatic fat inv.: Not identified Seminal vesicle inv.: Not identified Perineural inv.: Not identified Lymphovascular invasion: Not identified pT: pT1c Prostate MRI - 09/13 - on 125 g gland - BPH whorls - no definitive lesions seen - PSA density 6% [employer] [facility] 09/13 - Molecular Score 3.5 (which is low) - 10 yr DSM 6.4% - which is mid point of unfavorable intermediate curve - the overall personalized combined clinical risk (CCR) score compromise is a combination of the Prolaris molecular score + GARY score based on clinical characteristics PFSH Family History Mother Mental health disorder Social History Household Members Other:: , lives alone, Housing: House Patient Tobacco Use Status: Never used Tobacco e-Cigarette/Vaping Use: Never Used service: No Current occupational status: retired Cognitive needs: No Hearing needs: No Vision needs: Yes Review of Systems Const Denies chills and Denies fever(s) Card Reports no additional complaints and Denies syncope Resp Denies cough GI Denies abdominal pain and Denies heartburn Reports as per HPI and Denies change in libido Neuro Denies syncope Psych Denies change in libido Endo Denies change in libido Physical Exam Const General: cooperative, healthy appearing, comfortable and no acute distress Orientation/consciousness: patient oriented x3 HEENT Face and sinus: Yes normal facial exam Mouth: moist mucous membranes Neck Neck: Yes normal visual inspection, Yes full ROM and Yes trachea midline Chest Chest palpation & inspection: normal inspection of the chest Resp Effort & Inspection: normal respiratory effort, able to speak in complete sentences and no respiratory distress GI Inspection: Yes normal to inspection Back/Spine/Pelvis Cervical Spine: normal cervical lordosis Thoracic/Lumbar Spine: thoracic and lumbar spine normal to inspection Skin General skin exam: no rashes or lesions noted Neuro General: patient oriented x3, gait normal, tone normal and moves all extremities Extrem General: Yes normal to inspection and Yes capillary refill normal Assessment & Plan Assessment & Plan (1) Prostate cancer: Comment: Low volume, grade group 2 and 3, large prostate 125 g Code(s): C61 - Malignant neoplasm of prostate Category: Medical Plan Four month follow-up PSA Patient Instructions: Imaging studies, laboratory and physical exam results were discussed and reviewed in detail. No major barriers to patient understanding were identified. An opportunity to ask questions regarding the treatment plan was provided. All questions were answered. The patient expressed understanding and agreement with the above treatment plan. The patient is aware they should contact our office by phone for worsening of their current condition or the appearance of new urologic symptoms. Compliance is encouraged with any medications and followup testing that is ordered. It is a privilege to participate in the urologic care of your patient. If you have any questions or concerns regarding treatment for the above conditions, or other urologic issues, please do not hesitate to contact me. The office telephone contact is [phone]. This note is constructed using voice recognition software. While every effort has been made to ensure accuracy healthcare management consultant errors may have been included. Yours sincerely, Dr Aries Purvis MD, [facility] - Urology Providers of Expert, Compassionate Care for the Genitourinary System Coding Level of Care Code Est Pt Level 3 (66854) Diagnoses Prostate cancer C61
== END 2023-12-02 10:11 | disposition home or self-care (01) ==
PROVIDERS: PCP Internal Medicine; Visit Provider Urology
DX: C61 Malignant neoplasm of prostate (principal)
CPT/HCPCS: 99213

== ENCOUNTER → 2023-12-02 09:04 | Outpatient (BNVA) | payer MEDICARE, SELFPAY | PROVIDERS: PCP Internal Medicine; Visit Provider Urology | DX: C61 Malignant neoplasm of prostate (principal) | CPT/HCPCS: 99212 ==

== ENCOUNTER 2024-04-20 13:31 | Outpatient (AMB) | payer MEDICARE, SELFPAY ==
[2024-04-20 13:33] VITALS: BP 138/78; PULSE 78; TEMP 36.7; O2SAT 98; BMI 24.3
--- NOTE | 2024-04-20 13:33 | MHC.OFFWIV ---
Intake Vital Signs 04/20/24 13:33 Height 5 ft 7 in Weight 155 lb BMI 24.3 BP 138/78 Blood Pressure Location Rt brachial Position Sitting Pulse 78 Pulse Source Pulse Oximeter Temp 98.1 F Temp Source Oral Pulse Oximetry (%) 98 Intake Visit Reasons: EP tick bite Intake Note: pt is here for c/o tick bite, thigh. was removed but presented the bullseye Patient Tobacco Use Status: Never used Tobacco Allergies sulfamethoxazole [From Bactrim] Adverse Reaction (Verified 04/20/24 13:33) Fatigued trimethoprim [From Bactrim] Adverse Reaction (Verified 04/20/24 13:33) Fatigued Do you need a note to return to daycare/school/sports/work: No HPI HPI Comments History of Present Illness Details Patient is a 73-year-old male complaining of a tick bite to his right lower thigh 4 days ago. He states that [place] in [place] 4 days [place] and then that evening noticed the tick on his right thigh. He states he removed the tick. And then he tells me that a red rash appeared around the bite area 2 days ago but is now gone. He denies any joint pain or fevers. He tells me his daughter is a nurse practitioner and she recommended he come in. PFSH Family History Mother Mental health disorder Social History Household Members Other:: , lives alone, Housing: House Patient Tobacco Use Status: Never used Tobacco e-Cigarette/Vaping Use: Never Used service: No Current occupational status: retired Cognitive needs: No Hearing needs: No Vision needs: Yes Review of Systems Const All systems reviewed & are unremarkable except as noted in HPI and below Physical Exam Vital Signs: BMI result Body Mass Index 24.3 Const General: cooperative, healthy appearing, comfortable, no acute distress and well developed Orientation/consciousness: patient oriented x3 Limitations: no limitations HEENT Head: Yes normal to inspection Neck Neck: Yes normal visual inspection and Yes supple Neuro General: patient oriented x3 Extrem Other: Right lower extremity has a 0.75 cm area of erythema with central scab. No erythema migrans noted at this time. Signs of infection noted. Assessment & Plan Assessment & Plan (1) Erythema migrans (Lyme disease): Code(s): A69.20 - Lyme disease, unspecified Plan: Although the rash is not evident today, patient is a reputable historian, we will treat based on his report of a erythema migrans rash and treat with 10 days of doxycycline. Plan see above Medications: New doxycycline hyclate 100 mg PO BID 20 tabs 0RF Coding Level of Care Code Est Pt Level 3 (32911) Diagnoses Erythema migrans (Lyme disease) A69.20
== END 2024-04-20 14:23 | disposition home or self-care (01) ==
PROVIDERS: PCP Internal Medicine; Visit Provider Physician Assistant
DX: A69.20 Lyme disease, unspecified (principal)

== ENCOUNTER → 2024-04-20 13:31 | Outpatient (BNVA) | payer MEDICARE, SELFPAY | PROVIDERS: PCP Internal Medicine; Visit Provider Physician Assistant | DX: A69.20 Lyme disease, unspecified (principal) | CPT/HCPCS: 99212 ==

== ENCOUNTER 2024-05-24 08:25 | Outpatient (AMB) | payer MEDICARE, SELFPAY ==
[2024-05-24 08:28] VITALS: BP 118/72; PULSE 94; O2SAT 97; BMI 24.6
--- NOTE | 2024-05-24 08:28 | A.OFFPC_ITS ---
Vital Signs 05/24/24 08:28 Height 5 ft 7 in Weight 157 lb BMI 24.6 BP 118/72 Blood Pressure Location Lt brachial Position Sitting Pulse 94 Pulse Source Pulse Oximeter Pulse Oximetry (%) 97 Oxygen Delivery Method Room Air Intake Visit Reasons: Annual PE Intake Note: Pt is here today for PE. Allergies sulfamethoxazole [From Bactrim] Adverse Reaction (Verified 05/24/24 08:30) Fatigued trimethoprim [From Bactrim] Adverse Reaction (Verified 05/24/24 08:30) Fatigued Medication List - Last Reconciled 05/24/24 by Katlin Villegas MD finasteride 5 mg PO DAILY 90 days fluticasone propionate 50 mcg/actuation (Flonase Allergy Relief) 2 sprays intran valdez DAILY tamsulosin 0.8 mg (2 x 0.4 mg) PO DAILY 30 days Tobacco use date assessed: 05/24/24 Fall risk assessment: No Falls in past year Last assessed Fall Risk: 05/24/24 Dental Screening Dental Screen Date: 05/24/24 Did you have a dental visit in the last 12 months?: Yes Did you have a dental problem in the last 6 months where you did not have access to dental care?: No Was dental information given to patient?: Patient has dentist HPI Annual PE HPI Details Pt presents for PE. Pt was diagnosed with prostate ca and f/u with Dr. Purvis. [facility] Family History Mother Mental health disorder Social History Household Members Other:: , lives alone, Housing: House Patient Tobacco Use Status: Never used Tobacco e-Cigarette/Vaping Use: Never Used service: No Current occupational status: retired Cognitive needs: No Hearing needs: No Vision needs: Yes Questionnaire PHQ-9 Over the last 2 weeks, how often have you been bothered by any of the following problems? 1. Little interest or pleasure in doing things: not at all 2. Feeling down, depressed, or hopeless: not at all 3. Trouble falling or staying asleep, or sleeping too much: not at all 4. Feeling tired or having little energy: not at all 5. Poor appetite or overeating: not at all 6. Feeling bad about yourself - or that you are a failure or have let yourself or your family down: not at all 7. Trouble concentrating on things, such as reading the newspaper or watching television: not at all 8. Moving or speaking so slowly that other people could have noticed. Or the opposite - being so fidgety or restless that you have been moving around a lot more than usual: not at all 9. Thoughts that you would be better off or of hurting yourself in some way: not at all Total score: 0 Depression Screening Interpretation: Negative Depression Screening Done: Yes 35103 - PHQ-9 Billing: Yes Source: Developed by Drs. Alexandru Paniagua, Yeny Arechiga, Gurdeep Crooks and colleagues, with an educational mine from [employer]. Thrive Questionnaire Date Thrive assessed: 05/24/24 I am a: Patient What is your living situation today?: I have a steady place to live Within the past 12 months, did the food you bought not last and you didn't have the money to get more?: Never true Within the past 12 months, did you worry whether your food would run out before you got money to buy more?: Never true Do you have trouble paying for medicines?: No Do you have trouble getting transportation to medical appointments?: No Do you have trouble paying your heating and electricity bill?: No Do you have trouble taking care of your child, family member or friend?: No Do you have trouble with day-to-day activities such as bathing, preparing meals, shopping, managing finances, etc.?: No Are you currently unemployed and looking for a job?: No Are you interested in more education?: Yes Please select the resources that you would like help with: None Currently or been in a relationship where the following occur: No concerns reported THRIVE Score: 0 AUDIT C Alcohol Use Questionnaire (AUDIT-C) 1. How often do you have a drink containing alcohol?: Never 3. How often do you have six or more drinks on one occasion?: Never Total Score: 0 ANNA-7 AMB Questionnaire ANNA-7 Date ANNA - 7 assessed: 05/24/24 Feeling nervous, anxious, or on edge: 0 = Not at all Not being able to stop or control worryin = Not at all Worrying too much about different things: 0 = Not at all Trouble relaxin = Not at all Being so restless that it is hard to sit still: 0 = Not at all Becoming easily annoyed or irritable: 0 = Not at all Feeling afraid as if something awful might happen: 0 = Not at all Total ANNA-7 score (0-4 normal; 5-9 mild; 10-14 moderate; 15-21 severe): 0 Source: Developed by Drs. Alexandru Paniagua, Yeny Arechiga, Gurdeep Crooks and colleagues, with an educational mine from [employer]. ANNA-7 Assessment Billing ANNA-7 Assessment Tool: ANNA-7 Assessment 81337 Review of Systems Const All systems reviewed & are unremarkable except as noted in HPI and below Reports no additional complaints Eyes Reports no additional complaints ENT Reports no additional complaints Card Reports no additional complaints Resp Reports no additional complaints GI Reports no additional complaints Reports no additional complaints Physical exam (Primary Care) Vital Signs: Last Vital Signs Pulse 94 05/24/24 08:28 BP 118/72 05/24/24 08:28 Pulse Ox 97 05/24/24 08:28 Oxygen Delivery Method Room Air 05/24/24 08:28 BMI result Body Mass Index 24.6 Tobacco/Smoking Status: Tobacco use Status Tobacco use date assessed 05/24/24 05/24/24 08:34 Patient Tobacco Use Status Never used Tobacco 05/24/24 08:34 e-Cigarette/Vaping Use Never Used 05/24/24 08:34 PHQ-9: PHQ-9 Score PHQ-9: Total score 0 05/24/24 08:34 Depression Screening Interpretation: Negative Thrive Assessment: Date of Thrive Assessment Date Thrive assessed 05/24/24 05/24/24 08:34 Currently or been in a relationship where the following occur: No concerns reported Const General: no acute distress HENMT Head: Yes normal to inspection Ears: hearing grossly normal bilaterally Face and sinus: Yes normal facial exam Mouth: Normal oral and palatal mucosa present Throat: Yes posterior oropharynx normal Eyes General: appearance normal, both eyes and all related structures Neck Neck: Yes no lymphadenopathy and Yes supple Resp Effort & Inspection: normal respiratory effort Auscultation: clear to auscultation bilaterally Cardio Rhythm: regular rhythm Heart sounds: S1 normal heart sound present and S2 normal heart sound present GI Inspection: Yes normal to inspection Palpation (GI): Soft to palpation Percussion: Yes normal to percussion Auscultation: normal bowel sounds Coding Level of Care Code Est Pt Prev Care >65y(59160) Diagnoses Annual physical exam Z00.00 Prostate cancer C61 Hx of colonoscopy Z98.890 Additional Codes ANNA-7 Assessment Billing - ANNA-7 Assessment Tool: ANNA-7 Assessment 84644 ([id number]) PHQ-9 - 99291 - PHQ-9 Billing: Yes ([id number]) Assessment & Plan Assessment & Plan (1) Annual physical exam: Code(s): Z00.00 - Encounter for general adult medical examination without abnormal findings Category: Medical Plan: Well-balanced diet regular physical activity discussed with the patient he will return for fasting blood work and will call GI to schedule colonoscopy (2) Prostate cancer: Comment: Low volume, grade group 2 and 3, large prostate 125 g, surveillance approach, follows up with Dr. Purvis Code(s): C61 - Malignant neoplasm of prostate Category: Medical Plan: Follow-up with urology (3) Hx of colonoscopy: Comment: hx of polyps, 2019 q 5 years at [facility], Dr. Caraballo Code(s): Z98.890 - Other specified postprocedural states Category: Surgical Plan: Patient will call to schedule an appointment with GI for colonoscopy
== END 2024-05-24 09:14 | disposition home or self-care (01) ==
PROVIDERS: PCP Internal Medicine; Visit Provider Internal Medicine
DX: Z00.00 Encounter for general adult medical examination without abnormal findings (principal); C61 Malignant neoplasm of prostate; Z98.890 Other specified postprocedural states

== ENCOUNTER → 2024-05-24 08:25 | Outpatient (BNVA) | payer MEDICARE, SELFPAY | PROVIDERS: PCP Internal Medicine; Visit Provider Internal Medicine | DX: Z00.00 Encounter for general adult medical examination without abnormal findings (principal); C61 Malignant neoplasm of prostate; Z98.890 Other specified postprocedural states | CPT/HCPCS: 96127; 99397 ==

== ENCOUNTER 2024-05-26 07:57 | Outpatient (REF) | payer MEDICARE, SELFPAY ==
[2024-05-26 10:34] LABS: Estimated Average Glucose 123 mg/dL; Hematocrit 37.5 % (42.0-52.0); Hemoglobin 12.6 g/dl (14.0-18.0); Hemoglobin A1C 130.3667 umol/L; Hemoglobin A1c % 5.9 % (<6.0); Mean Corpuscular HGB Conc 33.6 g/dl (31.0-36.0); Mean Corpuscular Hemoglobin 32.8 pg (27.0-33.0); Mean Corpuscular Volume 97.7 fL (80.0-98.0); PLT CLUMP 1; Red Blood Count 3.84 X10*6/uL (4.60-5.80); Red Cell Distribution Width 26.1 % (11.0-16.0); Total Hemoglobin (HGBA1C) 3202.9263 umol/L
[2024-05-26 10:50] LABS: Alanine Aminotransferase 18 U/L (0-40); Albumin Level 4.5 g/dL (3.5-5.0); Alkaline Phosphatase 85 U/L (39-117); Anion Gap 9 (12-20); Aspartate Amino Transferase 25 U/L (5-37); Bilirubin Total 1.5 mg/dL (0.0-1.0); Blood Urea Nitrogen 14 mg/dL (9-16); Calcium 9.5 mg/dL (8.4-10.2); Carbon Dioxide 30 mmol/L (22-29); Chloride 105 mmol/L (96-108); Cholesterol 142 mg/dL (<200); Estimated Glomerular Filt Rate > 60; Glucose Fasting 108 mg/dL (60-99); HDL Cholesterol 51 mg/dL (>40); LDL Cholesterol Calculated 82 mg/dL (<100); Potassium 4.2 mmol/L (3.3-5.1); Sodium 140 mmol/L (135-145); Total Protein 7.3 g/dL (6.5-8.0); Triglycerides 49 mg/dL (<150)
[2024-05-26 10:51] LABS: Baso%MD 0.3 %; IG%MD 1.7 %; Lymph%MD 47.5 %; Mono%MD 28.5 %
[2024-05-26 10:55] LABS: WBC ABN SCTR FOR CBC 1
[2024-05-26 11:04] LABS: Prostate Specific Antigen 4.72 ng/mL (<0.05-4.0)
[2024-05-26 11:21] LABS: Atypical Lymphs Percent Manual 1 % (0-6); Band Neutrophils Percent 12 % (3-5); Basophils Percent Manual 2 % (0-2); Lymphocytes Percent Manual 53 % (20-40); Monocytes Percent Manual 16 % (2-11); Neutrophils Percent Manual 16 % (45-73)
[2024-05-26 11:24] LABS: Large Platelet PRESENT; Platelet Estimate NORMAL (NORMAL); Platelet Morphology Comment NOTED; RBC Morphology NOTED
[2024-05-26 11:26] LABS: Hypochromasia 2+ (15-30) /OIF; Macrocytosis 2+ (15-30) /OIF; Ovalocytes 2+ (15-30) /OIF; Tear Drop Cells 1+ (0-2) /OIF
[2024-05-26 11:27] LABS: Basophils Abs Manual 0.1 X10*3/uL (0.0-0.2); Lymphocytes Absolute Manual 1.6 X10*3/uL (1.2-4.9); Monocytes Absolute Manual 0.5 X10*3/uL (0.1-1.2); Neutrophils Absolute Manual 0.8 X10*3/uL (2.0-8.3); Platelet Count 172 X10*3/uL (160-400)
== END 2024-05-26 07:58 | disposition home or self-care (01) ==
LOC: HO.HMGCLDS 07:57
PROVIDERS: PCP Internal Medicine; Referring Provider Urology; Visit Provider Internal Medicine
DX: Z00.00 Encounter for general adult medical examination without abnormal findings (principal); R73.9 Hyperglycemia, unspecified; C61 Malignant neoplasm of prostate; Z12.5 Encounter for screening for malignant neoplasm of prostate; N40.0 Benign prostatic hyperplasia without lower urinary tract symptoms
CPT/HCPCS: 36415; 80053; 80061; 81003; 82565; 83036; 84153; 84520; 85007; 85027; 99212

== ENCOUNTER 2024-05-26 08:47 | Outpatient (AMB) | payer MEDICARE, SELFPAY ==
--- NOTE | 2024-05-26 08:57 | MHC.OFFVIS ---
Intake Visit Reasons: 4M PSA(psa?) Intake Note: Patient is present for 4M PSA Urology Medication:FINASTERIDE Antibiotic Allergy:BACTRIM Blood Thinner:NONE Ic Designer Custom Required: No Allergies sulfamethoxazole [From Bactrim] Adverse Reaction (Verified 05/26/24 08:58) Fatigued trimethoprim [From Bactrim] Adverse Reaction (Verified 05/26/24 08:58) Fatigued HPI Comments Details: Ariel is a very pleasant male. He has a patient of Dr. Villegas. He is seen for the following urologic conditions - prostate cancer 06/15 Prostate cancer follow-up Improvement in urinary performance on finasteride Lab work had not been performed Reorder Six-month follow-up repeat lab work Discussed re-biopsy 12/14 Completed radiation oncology assessment Understands options of external beam radiation versus active surveillance Based on his reading of the potential complications with radiation would prefer surveillance protocol Understands this would entail repeat biopsy at 18 months 10/14 Discussed findings from prostate MRI and [employer] [facility] Prostate MRI has a negative finding. Negative predictive value of MRI is 95%. There is only a 1 in 20 chance of having prostate cancer with a negative MRI. [employer]. Molecular score 3.5 which is low and typically associated with active surveillance. Clinical characteristics drive recommendation for monotherapy. Prostate Cancer - Grade Group 3 Low Volume Biopsy Date: 08/16 PSA: 07/16 8.7 21% Prostate Volume: 120gm Histologic type: Adenocarcinoma, acinar type Histologic grade: Schneider score: 7 (4+3) LBL 40%, 7(3+4) LOOMIS 10% Grade group: 3 and 2 Tumor quantitation: Number cores positive: 2 Total number of cores: 19 % of tissue involved: 3% Periprostatic fat inv.: Not identified Seminal vesicle inv.: Not identified Perineural inv.: Not identified Lymphovascular invasion: Not identified pT: pT1c Prostate MRI - 09/13 - on 125 g gland - BPH whorls - no definitive lesions seen - PSA density 6% [employer] [facility] 09/13 - Molecular Score 3.5 (which is low) - 10 yr DSM 6.4% - which is mid point of unfavorable intermediate curve - the overall personalized combined clinical risk (CCR) score compromise is a combination of the Prolaris molecular score + GARY score based on clinical characteristics PFSH Family History Mother Mental health disorder Social History Household Members Other:: , lives alone, Housing: House Patient Tobacco Use Status: Never used Tobacco e-Cigarette/Vaping Use: Never Used service: No Current occupational status: retired Cognitive needs: No Hearing needs: No Vision needs: Yes Review of Systems Const Denies chills and Denies fever(s) Card Reports no additional complaints and Denies syncope Resp Denies cough GI Denies abdominal pain and Denies heartburn Reports as per HPI and Denies change in libido Neuro Denies syncope Psych Denies change in libido Endo Denies change in libido Physical Exam Const General: cooperative, healthy appearing, comfortable and no acute distress Orientation/consciousness: patient oriented x3 HEENT Face and sinus: Yes normal facial exam Mouth: moist mucous membranes Neck Neck: Yes normal visual inspection, Yes full ROM and Yes trachea midline Chest Chest palpation & inspection: normal inspection of the chest Resp Effort & Inspection: normal respiratory effort, able to speak in complete sentences and no respiratory distress GI Inspection: Yes normal to inspection Back/Spine/Pelvis Cervical Spine: normal cervical lordosis Thoracic/Lumbar Spine: thoracic and lumbar spine normal to inspection Skin General skin exam: no rashes or lesions noted Neuro General: patient oriented x3, gait normal, tone normal and moves all extremities Extrem General: Yes normal to inspection and Yes capillary refill normal Assessment & Plan Assessment & Plan (1) BPH (benign prostatic hyperplasia): Code(s): N40.0 - Benign prostatic hyperplasia without lower urinary tract symptoms Category: Medical (2) Prostate cancer: Comment: Low volume, grade group 2 and 3, large prostate 125 g, surveillance approach, follows up with Dr. Purvis Code(s): C61 - Malignant neoplasm of prostate Category: Medical Plan Six-month follow-up PSA Orders: Orders Prostate Specific Antigen Today C61 - Malignant neoplasm of prostate AMB Urinalysis Automated Today Z13.9 - Encounter for screening, unspecified PSA,Total (Free>4and<10) 6 Months C61 - Malignant neoplasm of prostate Complete Blood Count no Diff Today C61 - Malignant neoplasm of prostate, E29.1 - Testicular hypofunction Patient Instructions: Imaging studies, laboratory and physical exam results were discussed and reviewed in detail. No major barriers to patient understanding were identified. An opportunity to ask questions regarding the treatment plan was provided. All questions were answered. The patient expressed understanding and agreement with the above treatment plan. The patient is aware they should contact our office by phone for worsening of their current condition or the appearance of new urologic symptoms. Compliance is encouraged with any medications and followup testing that is ordered. It is a privilege to participate in the urologic care of your patient. If you have any questions or concerns regarding treatment for the above conditions, or other urologic issues, please do not hesitate to contact me. The office telephone contact is [phone]. This note is constructed using voice recognition software. While every effort has been made to ensure accuracy data coordinator errors may have been included. Yours sincerely, Dr Aries Purvsi MD, [facility] - Urology Providers of Expert, Compassionate Care for the Genitourinary System Coding Level of Care Code Est Pt Level 3 (86527) Diagnoses BPH (benign prostatic hyperplasia) N40.0 Prostate cancer C61
== END 2024-05-26 09:24 | disposition home or self-care (01) ==
PROVIDERS: PCP Internal Medicine; Visit Provider Urology
DX: N40.0 Benign prostatic hyperplasia without lower urinary tract symptoms (principal); C61 Malignant neoplasm of prostate; Z13.9 Encounter for screening, unspecified
CPT/HCPCS: 99213

== ENCOUNTER 2024-05-26 09:42 | Outpatient (REF) | payer MEDICARE, SELFPAY ==
[2024-05-26 11:16] LABS: Blood Urea Nitrogen 13 mg/dL (9-16); Estimated Glomerular Filt Rate > 60
[2024-05-26 11:27] LABS: Hematocrit 37.5 % (42.0-52.0); Hemoglobin 12.6 g/dl (14.0-18.0); Mean Corpuscular Volume 97.7 fL (80.0-98.0); Red Blood Count 3.84 X10*6/uL (4.60-5.80)
[2024-05-26 11:28] LABS: Mean Corpuscular HGB Conc 33.6 g/dl (31.0-36.0); Mean Corpuscular Hemoglobin 32.8 pg (27.0-33.0); Platelet Count 172 X10*3/uL (160-400); Red Cell Distribution Width 26.1 % (11.0-16.0)
== END 2024-05-26 09:43 | disposition home or self-care (01) ==
LOC: HO.LAB 09:42
PROVIDERS: PCP Internal Medicine; Visit Provider Urology
DX: Z13.89 Encounter for screening for other disorder (principal)
CPT/HCPCS: 36415; 82565; 84520; 85027

== ENCOUNTER 2024-06-03 13:51 | Outpatient (REF) | payer MEDICARE, SELFPAY ==
[2024-06-03 17:13] LABS: Baso%MD 0.6 %; Eos%MD 0.8 %; Hematocrit 34.7 % (42.0-52.0); Hemoglobin 11.5 g/dl (14.0-18.0); IG%MD 2.8 %; Lymph%MD 28.6 %; Mean Corpuscular HGB Conc 33.1 g/dl (31.0-36.0); Mean Corpuscular Hemoglobin 32.2 pg (27.0-33.0); Mean Corpuscular Volume 97.2 fL (80.0-98.0); Mono%MD 32.2 %; Platelet Count 309 X10*3/uL (160-400); Red Blood Count 3.57 X10*6/uL (4.60-5.80); Red Cell Distribution Width 26.5 % (11.0-16.0)
[2024-06-03 17:23] LABS: PLT ABN DIST 1; WBC ABN SCTR FOR CBC 1
[2024-06-03 17:30] LABS: Folate 14.7 ng/mL (> or = 4.0); Vitamin B12 1012 pg/mL (200-900)
[2024-06-03 17:50] LABS: Atypical Lymphs Percent Manual 3 % (0-6); Band Neutrophils Percent 11 % (3-5); Basophils Percent Manual 1 % (0-2); Lymphocytes Percent Manual 25 % (20-40); Metamyelocytes Percent 1 %; Monocytes Percent Manual 26 % (2-11); Myelocytes Percent 4 %; Neutrophils Percent Manual 29 % (45-73)
[2024-06-03 17:55] LABS: RBC Morphology NOTED; Schistocytes 1+ (0-2) /OIF; Target Cells 1+ (5-14) /OIF; Tear Drop Cells 1+ (0-2) /OIF
[2024-06-03 17:57] LABS: Ovalocytes 1+ (5-14) /OIF; Polychromasia 1+ (0-2) /OIF
[2024-06-03 18:00] LABS: Large Platelet PRESENT; Platelet Estimate NORMAL (NORMAL); Platelet Morphology Comment NOTED
[2024-06-03 18:04] LABS: Atypical Lymph Absolute Manual 0.2 x10*3/uL; Basophils Abs Manual 0.1 X10*3/uL (0.0-0.2); Lymphocytes Absolute Manual 1.6 X10*3/uL (1.2-4.9); Metamyelocytes Absolute 0.1 X10*3/uL; Monocytes Absolute Manual 1.7 X10*3/uL (0.1-1.2); Myelocytes Absolute 0.3 X10*/uL; Neutrophils Absolute Manual 2.6 X10*3/uL (2.0-8.3); White Blood Count 6.5 X10*3/uL (4.8-10.8)
[2024-06-08 17:44] LABS: IgA 145 mg/dL (70-320); IgG 1266 mg/dL (600-1540); IgM 159 mg/dL (50-300)
== END 2024-06-03 13:52 | disposition home or self-care (01) ==
LOC: HO.HMGCLDS 13:51
PROVIDERS: PCP Internal Medicine; Visit Provider Internal Medicine
DX: D70.9 Neutropenia, unspecified (principal)
CPT/HCPCS: 36415; 82607; 82746; 82784; 85007; 85025; 85027; 86334

== ENCOUNTER 2024-11-29 12:20 | Outpatient (REF) | payer MEDICARE, SELFPAY ==
--- OUTSIDE RECORDS SUMMARY | 2024-11-29 14:00 | XMS_ITS | Encounter Summary ---
Author Organization [facility] Address [address] [place] [address] Care Team Providers Care Booking Prizer Name Role Phone Katlin Villegas MD Primary Care Provider [phone] Encounter Details Date Type Department Care Team (Late st Contact Info) Description 10/01/2024 Lab Requisition [facility] - Main Lab [address] [place] [id number] Sahil Caraballo MD [address] [address] Personal history of adenomatous and serrated colon polyps Social History Tobacco Use Types Packs/Day Years Used Date Smoking Tobacco: Never Smokeless Tobacco: Never Alcohol Use Standard Drinks/Week Comments Yes 0 (1 standard drink = 0.6 oz pur e alcohol) Sex and Gender Information Value Date Recorded Sex Assigned at Male 08/26/2024 2:30 PM EST Legal Sex Male 9:35 AM EDT Gender Identity Male 08/26/2024 2:30 PM EST Sexual Orientation Straight 08/26/2024 2: 30 PM EST documented as of this encounter Plan of Treatment Not on file documented as of this encounter Procedures Procedure Name Priority Date/Time Associated Diagnosis Comments TISSUE EXAM Routine 09/30/2024 Personal history of adenomatous and serrated colon polyps documented in this encounter Results * Tissue Exam (09/30/2024) Final Diagnosis Colon, 20 cm, polyp: Hyperplastic polyp 10/04/2024 9:07 AM EDT [facility] Clinical Information High risk colon cancer surveillance: Personal history of adenomatous colonic polyps Polyp 10/04/2024 9:07 AM EDT [facility] Gross Description A. Colon, polyp at 20cm: Labeled 20 cm polyp . Received in formalin is a soft, oquendo polypoid tissue with attached mucosa measuring 0.55 cm in greatest diameter, which is inked green at the base, wrapped in paper and submitted in toto in one cassette, one piece, multiple levels. TS 10/04/2024 9:07 AM EDT [facility] Disclaimer Unless otherwise specified, all tissue is 10% NB formalin fixed and paraffin embedded. 10/04/2024 9:07 AM EDT [facility] Tissue Colon structure / Unknown 09/30/2024 10/01/2024 9:21 AM EDT us Sahil Caraballo MD LAB PATHOLOGY ORDERABLES Kirsten neff Result [facility] [address] [place] [address], documented in this encounter Visit Diagnoses Diagnosis Personal history of adenomatous and serrated colon polyps documented in this encounter Care Teams Booking Prizer Relationship Specialty Start Date End Date Katlin Villegas MD [address] [place] [phone] PCP - General Internal Medicine 06/25/24 documented as of this encounter
[2024-11-29 16:16] LABS: Hematocrit 36.7 % (42.0-52.0); Hemoglobin 12.1 g/dl (14.0-18.0); Mean Corpuscular Hemoglobin 31.6 pg (27.0-33.0); Mean Corpuscular Volume 95.8 fL (80.0-98.0); PLT CLUMP 1; Red Blood Count 3.83 X10*6/uL (4.60-5.80); Red Cell Distribution Width 26.6 % (11.0-16.0)
[2024-11-29 16:17] LABS: WBC ABN SCTR FOR CBC 1
[2024-11-29 16:39] LABS: PSA,Total (Free>4and<10) 4.97 ng/mL (0.00-4.00)
[2024-11-29 16:49] LABS: Atypical Lymphs Percent Manual 4 % (0-6); Band Neutrophils Percent 2 % (3-5); Basophils Percent Manual 2 % (0-2); Lymphocytes Percent Manual 33 % (20-40); Metamyelocytes Percent 1 %; Monocytes Percent Manual 21 % (2-11); Myelocytes Percent 2 %; Neutrophils Percent Manual 35 % (45-73)
[2024-11-29 16:51] LABS: Platelet Estimate NORMAL (NORMAL); Platelet Morphology Comment NORMAL; RBC Morphology NOTED; Schistocytes 3+ (>5) /OIF
[2024-11-29 16:57] LABS: Atypical Lymph Absolute Manual 0.1 x10*3/uL; Basophils Abs Manual 0.1 X10*3/uL (0.0-0.2); Lymphocytes Absolute Manual 1.2 X10*3/uL (1.2-4.9); Monocytes Absolute Manual 0.8 X10*3/uL (0.1-1.2); Myelocytes Absolute 0.1 X10*/uL; Neutrophils Absolute Manual 1.3 X10*3/uL (2.0-8.3); Platelet Count 239 X10*3/uL (160-400); White Blood Count 3.6 X10*3/uL (4.8-10.8)
[2024-11-30 14:03] LABS: Free Prostate Spec Ag 0.9 ng/mL; Percent Free Prostate Spec Ag 20 % (calc) (>25); Prostate Specific Ag Total 4.5 ng/mL (< OR = 4.0)
== END 2024-11-29 12:21 | disposition home or self-care (01) ==
LOC: HO.HMGCLDS 12:20
PROVIDERS: PCP Internal Medicine; Visit Provider Urology
DX: C61 Malignant neoplasm of prostate (principal); Z12.5 Encounter for screening for malignant neoplasm of prostate
CPT/HCPCS: 36415; 84153; 84154; 85007; 85027

== ENCOUNTER 2024-12-15 10:34 | Outpatient (AMB) | payer MEDICARE, SELFPAY ==
--- NOTE | 2024-12-15 10:35 | MHC.OFFVIS ---
Intake Visit Reasons: 6m/PSA/ CBC Intake Note: Patient is present for 6M PSA labs 11/29/24 psa free :0.9 Psa total :4.5 PVR: 462 ml Urology Medication:FINASTERIDE, TAMSULOSIN Antibiotic Allergy:BACTRIM Blood Thinner:NONE Linemarker Required: No Accompanied by: Self / Same As Patient Allergies sulfamethoxazole (From Bactrim) Adverse Reaction (Verified 12/15/24 10:38) Fatigued trimethoprim (From Bactrim) Adverse Reaction (Verified 12/15/24 10:38) Fatigued HPI Comments Details: Ariel is a very pleasant male. He has a patient of Dr. Villegas. He is seen for the following urologic conditions - prostate cancer Some degree of urinary hesitancy with incomplete voiding Suggestion for cystoscopy in office May need GreenLight laser 12/15 - PSA 4.5 20% 06/15 - PSA 4.7 Improvement in urinary performance on finasteride 12/14 Completed radiation oncology assessment Understands options of external beam radiation versus active surveillance Based on his reading of the potential complications with radiation would prefer surveillance protocol Understands this would entail repeat biopsy at 18 months 10/14 Discussed findings from prostate MRI and [employer] Prostate MRI has a negative finding. Negative predictive value of MRI is 95%. There is only a 1 in 20 chance of having prostate cancer with a negative MRI. [employer]. Molecular score 3.5 which is low and typically associated with active surveillance. Clinical characteristics drive recommendation for monotherapy. Prostate Cancer - Grade Group 3 Low Volume 08/16 Biopsy Date: 08/16 PSA: 07/16 8.7 21% Prostate Volume: 120gm Histologic type: Adenocarcinoma, acinar type Histologic grade: Gaetano score: 7 (4+3) LBL 40%, 7(3+4) LOOMIS 10% Grade group: 3 and 2 Tumor quantitation: Number cores positive: 2 Total number of cores: 19 % of tissue involved: 3% Periprostatic fat inv.: Not identified Seminal vesicle inv.: Not identified Perineural inv.: Not identified Lymphovascular invasion: Not identified pT: pT1c Prostate MRI - 09/13 - on 125 g gland - BPH whorls - no definitive lesions seen - PSA density 6% [employer] 09/13 - Molecular Score 3.5 (which is low) - 10 yr DSM 6.4% - which is mid point of unfavorable intermediate curve - the overall personalized combined clinical risk (CCR) score compromise is a combination of the Prolaris molecular score + GARY score based on clinical characteristics PFSH Family History Mother Mental health disorder Social History Household Members Other:: , lives alone, Housing: House Patient Tobacco Use Status: Never used Tobacco e-Cigarette/Vaping Use: Never Used service: No Current occupational status: retired Cognitive needs: No Hearing needs: No Vision needs: Yes Review of Systems Const Denies chills and Denies fever(s) Card Reports no additional complaints and Denies syncope Resp Denies cough GI Denies abdominal pain and Denies heartburn Reports as per HPI and Denies change in libido Neuro Denies syncope Psych Denies change in libido Endo Denies change in libido Physical Exam Const General: cooperative, healthy appearing, comfortable and no acute distress Orientation/consciousness: patient oriented x3 HEENT Face and sinus: Yes normal facial exam Mouth: moist mucous membranes Neck Neck: Yes normal visual inspection, Yes full ROM and Yes trachea midline Chest Chest palpation & inspection: normal inspection of the chest Resp Effort & Inspection: normal respiratory effort, able to speak in complete sentences and no respiratory distress GI Inspection: Yes normal to inspection Back/Spine/Pelvis Cervical Spine: normal cervical lordosis Thoracic/Lumbar Spine: thoracic and lumbar spine normal to inspection Skin General skin exam: no rashes or lesions noted Neuro General: patient oriented x3, gait normal, tone normal and moves all extremities Extrem General: Yes normal to inspection and Yes capillary refill normal Assessment & Plan Assessment & Plan (1) Prostate cancer: Comment: Low volume, grade group 2 and 3, large prostate 125 g, surveillance approach, follows up with Dr. Purvis Code(s): C61 - Malignant neoplasm of prostate Category: Medical (2) Bladder trabeculation: Code(s): N32.89 - Other specified disorders of bladder Category: Medical Plan Office cystoscopy Patient Instructions: This note is constructed using voice recognition software. While every effort has been made to ensure accuracy radiological health specialist errors may have been included. Imaging studies, laboratory and physical exam results were discussed and reviewed in detail. No major barriers to patient understanding were identified. An opportunity to ask questions regarding the treatment plan was provided. All questions were answered. The patient expressed understanding and agreement with the above treatment plan. The patient is aware they should contact our office by phone for worsening of their current condition or the appearance of new urologic symptoms. Compliance is encouraged with any medications and followup testing that is ordered. It is a privilege to participate in the urologic care of your patient. If you have any questions or concerns regarding treatment for the above conditions, or other urologic issues, please do not hesitate to contact me. The office telephone contact is [phone]. Sincerely, Dr Aries Purvis MD, DONNY [facility] - Urology Compassionate Specialist Care for the Genitourinary System Coding Level of Care Code Est Pt Level 4 (66178) Diagnoses Prostate cancer C61 Bladder trabeculation N32.89
--- OUTSIDE RECORDS SUMMARY | 2024-12-15 12:30 | XMS_ITS | Encounter Summary ---
Author Organization [facility] Address [address] [place] [address] Care Team Providers Care Health Technician Hearing Name Role Phone Katlin Villegas MD Primary Care Provider [phone] Encounter Details Date Type Department Care Team (Late st Contact Info) Description 10/01/2024 Lab Requisition [facility] - Main Lab [address] [place] [id number] Sahil Caraballo MD [address] [address] Personal history of adenomatous and serrated colon [...] polyp: Hyperplastic polyp 10/04/2024 9:07 AM EDT [facility] Clinical Information High risk colon cancer surveillance: Personal history of adenomatous colonic polyps Polyp 10/04/2024 9:07 AM EDT [facility] Gross Description A. Colon, polyp at 20cm: Labeled 20 cm polyp . Received in formalin is a soft, oquendo polypoid tissue with attached mucosa measuring 0.55 cm in greatest diameter, which is inked green at the base, wrapped in paper and submitted in toto in one cassette, one piece, multiple levels. TS 10/04/2024 9:07 AM EDT [facility] Disclaimer Unless otherwise specified, all tissue is 10% NB formalin fixed and paraffin embedded. 10/04/2024 9:07 AM EDT [facility] Tissue Colon structure / Unknown 09/30/2024 10/01/2024 9:21 AM EDT us Sahil Caraballo MD LAB PATHOLOGY ORDERABLES Kirsten neff Result [facility] [address] [place] [address], documented in this encounter Visit Diagnoses Diagnosis Personal history of adenomatous and serrated colon polyps documented in this encounter Care Teams Health Technician Hearing Relationship Specialty Start Date End Date Katlin Villegas MD [address] [place] [phone] PCP - General Internal Medicine 06/25/24 documented as of this encounter
== END 2024-12-15 11:03 | disposition home or self-care (01) ==
LOC: HO.HUSH 10:35
PROVIDERS: PCP Internal Medicine; Visit Provider Urology
DX: C61 Malignant neoplasm of prostate (principal); N32.89 Other specified disorders of bladder; Z13.9 Encounter for screening, unspecified
CPT/HCPCS: 99214

== ENCOUNTER → 2024-12-15 10:34 | Outpatient (BNVA) | payer MEDICARE, SELFPAY | PROVIDERS: PCP Internal Medicine; Visit Provider Urology | DX: C61 Malignant neoplasm of prostate (principal); N32.89 Other specified disorders of bladder | CPT/HCPCS: 51798; 81003; 99212 ==

== ENCOUNTER 2025-02-16 08:51 | Outpatient (AMB) | payer MEDICARE, SELFPAY ==
--- NOTE | 2025-02-16 08:55 | MHC.OFFVIS ---
Intake Visit Reasons: cysto Intake Note: Patient is present for: cystoscopy Urology Medication:FINASTERIDE, TAMSULOSIN Blood Thinner:NONE Renal Social Worker Required: No Accompanied by: Spouse Allergies sulfamethoxazole (From Bactrim) Adverse Reaction (Verified 02/16/25 08:56) Fatigued trimethoprim (From Bactrim) Adverse Reaction (Verified 02/16/25 08:56) Fatigued HPI Comments Details: Ariel is a very pleasant male. He has a patient of Dr. Villegas. He is seen for the following urologic conditions - prostate cancer - lower urinary tract symptoms Cystoscopy shows trilobar hypertrophy Recommend GreenLight laser 12/15 - PSA 4.5 20% 06/15 - PSA 4.7 Improvement in urinary performance on finasteride 12/14 Completed radiation oncology assessment Understands options of external beam radiation versus active surveillance Based on his reading of the potential complications with radiation would prefer surveillance protocol Understands this would entail repeat biopsy at 18 months 10/14 Discussed findings from prostate MRI and [facility] Prostate MRI has a negative finding. Negative predictive value of MRI is 95%. There is only a 1 in 20 chance of having prostate cancer with a negative MRI. [employer]. Molecular score 3.5 which is low and typically associated with active surveillance. Clinical characteristics drive recommendation for monotherapy. Prostate Cancer - Grade Group 3 Low Volume 08/16 Biopsy Date: 08/16 PSA: 07/16 8.7 21% Prostate Volume: 120gm Histologic type: Adenocarcinoma, acinar type Histologic grade: Clayton score: 7 (4+3) LBL 40%, 7(3+4) LOOMIS 10% Grade group: 3 and 2 Tumor quantitation: Number cores positive: 2 Total number of cores: 19 % of tissue involved: 3% Periprostatic fat inv.: Not identified Seminal vesicle inv.: Not identified Perineural inv.: Not identified Lymphovascular invasion: Not identified pT: pT1c Prostate MRI - 09/13 - on 125 g gland - BPH whorls - no definitive lesions seen - PSA density 6% [employer] 09/13 - Molecular Score 3.5 (which is low) - 10 yr DSM 6.4% - which is mid point of unfavorable intermediate curve - the overall personalized combined clinical risk (CCR) score compromise is a combination of the Prolaris molecular score + GARY score based on clinical characteristics PFSH Family History Mother Mental health disorder Social History Household Members Other:: , lives alone, Housing: House Patient Tobacco Use Status: Never used Tobacco e-Cigarette/Vaping Use: Never Used service: No Current occupational status: retired Cognitive needs: No Hearing needs: No Vision needs: Yes Review of Systems Const Denies chills and Denies fever(s) Card Reports no additional complaints and Denies syncope Resp Denies cough GI Denies abdominal pain and Denies heartburn Reports as per HPI and Denies change in libido Neuro Denies syncope Psych Denies change in libido Endo Denies change in libido Physical Exam Const General: cooperative, healthy appearing, comfortable and no acute distress Orientation/consciousness: patient oriented x3 HEENT Face and sinus: Yes normal facial exam Mouth: moist mucous membranes Neck Neck: Yes normal visual inspection, Yes full ROM and Yes trachea midline Chest Chest palpation & inspection: normal inspection of the chest Resp Effort & Inspection: normal respiratory effort, able to speak in complete sentences and no respiratory distress GI Inspection: Yes normal to inspection Back/Spine/Pelvis Cervical Spine: normal cervical lordosis Thoracic/Lumbar Spine: thoracic and lumbar spine normal to inspection Skin General skin exam: no rashes or lesions noted Neuro General: patient oriented x3, gait normal, tone normal and moves all extremities Extrem General: Yes normal to inspection and Yes capillary refill normal Office Procedures Cystoscopy Consent Discussed risk and benefit or proposed procedure with the patient. Information consent for procedure given to the patient. Discussed technical aspects, risks, benefits and alternatives in full. Addressed all of the patient's questions and concerns regarding the procedure. The patient demonstrated knowledge and understanding. They wish to proceed with this procedure. Preparation The patient was prepped in the usual manner. A oval or circular glass cutter was present and in the room. Genitalia was prepped with betadine solution in a sterile manner. Lidocaine Jelly 2% was placed into the urethra and 16Fr flexible Olympus cystoscope was inserted into the meatus after adequate lubrication. Procedure Cystoscopy performed using a disposable [email or web address] digital 16 [place] cystoscope. Meatus circumcised Urethra anterior and posterior urethra normal Prostatic Urethra trilobar hyperplasia Bladder examination with retroflexion of cystoscope Bladder Orifices normal shape and position Bladder Capacity Normal Trabeculations grade 1/2 Cellule Formation None Diverticulum Formation None Mucosal Erythema None Bladder Tumor None [id number]-[id number] DISPOSABLE SCOPE URO-G FLEXIBLE SCOPE Procedure code (CPT) selection complete Office Meds lidocaine HCl 2 % mucosal jelly in applicator Performing Provider: Aries Purvis MD Performing Location: [facility] Administered by: Randee Silver RN on 02/16/25 09:15 Dose Route Admin Location Dispensed Lot Number Expiration Date ND Tag Maker 10 mL intra-urethral 10 mL nitrofurantoin monohydrate/macrocrystals 100 mg capsule Performing Provider: Aries Purvis MD Performing Location: [facility] Administered by: Randee Silver RN on 02/16/25 09:15 Dose Route Admin Location Dispensed Lot Number Expiration Date ND Tag Maker 100 mg PO 1 cap Results AMB Urinalysis, Automated UA Leukoctes 0 Mark/uL Last Edit by KATHERINE Miranda on 02/16/25 09:07 UA Nitrite Negative Last Edit by KATHERINE Miranda on 02/16/25 09:07 UA Urobilinogen 0.2 mg/dL Last Edit by KATHERINE Miranda on 02/16/25 09:07 UA Protein 15 mg/dL Last Edit by KATHERINE Miranda on 02/16/25 09:07 UA pH 6.0 Last Edit by KATHERINE Miranda on 02/16/25 09:07 UA Blood 0 Cricket/uL Last Edit by KATHERINE Miranda on 02/16/25 09:07 UA Specific Estill 1.020 Last Edit by KATHERINE Miranda on 02/16/25 09:07 UA Ketone Negative Last Edit by KATHERINE Miranda on 02/16/25 09:07 UA Bilirubin 0 mg/dL Last Edit by KATHERINE Miranda on 02/16/25 09:07 UA Glucose 0 mg/dL Last Edit by KATHERINE Miranda on 02/16/25 09:07 Results Reviewed Results Reviewed: Laboratory Last Values Urine pH (Auto) 6.0 02/16/25 09:07 Specific Estill (Auto) 1.020 02/16/25 09:07 Urine Protein (Auto) 15 mg/dL 02/16/25 09:07 Glucose (UA)(Auto) 0 mg/dL 02/16/25 09:07 Urine Ketones (Auto) Negative 02/16/25 09:07 Urine Blood (Auto) 0 Cricket/uL 02/16/25 09:07 Urine Nitrite (Auto) Negative 02/16/25 09:07 Urine Bilirubin (Auto) 0 mg/dL 02/16/25 09:07 Urine Urobilinogen (Auto) 0.2 mg/dL 02/16/25 09:07 Leukocyte Esterase (Auto) 0 Mark/uL 02/16/25 09:07 Assessment & Plan Assessment & Plan (1) Prostate cancer: Comment: Low volume, grade group 2 and 3, large prostate 125 g, surveillance approach, follows up with Dr. Purvis Code(s): C61 - Malignant neoplasm of prostate Category: Medical (2) Bladder trabeculation: Code(s): N32.89 - Other specified disorders of bladder Category: Medical (3) BPH (benign prostatic hyperplasia): Code(s): N40.0 - Benign prostatic hyperplasia without lower urinary tract symptoms Category: Medical Plan We discussed the nature of the decision and reasonable options for performing a prostate intervention. Interventions include TURP, GreenLight laser enucleation of the prostate, GreenLight laser ablation of the prostate, transurethral incision of the prostate, and I-Tend prostate procedure. Options such as medical therapy were discussed. The relative uncertainties and benefits related to each alternate procedure were adequately discussed. General surgical risks including, but not limited to, pain, bleeding, infection, myocardial infarction, pulmonary embolus, deep vein thrombosis and cerebrovascular accident which may result in further hospitalization were discussed. Full disclosure of the procedure as well as all major risks, benefits and complications were discussed including but not limited to damage to the urethra or bladder neck, recurrent BPH, retrograde ejaculation, bladder infection, urge, de jerry frequency, incomplete emptying, dysuria, remote chance of erectile dysfunction, epididymitis, and meatal stenosis. The success rate of the procedure was discussed. Success of the procedure in the short-term does not necessarily guarantee that long-term success will be maintained. Suitable follow up will need to be maintained. The patient showed understanding of discussion. An opportunity was provided for questions to be answered and wishes to proceed with the following procedure. - greenlight laser Orders: Orders AMB Cystoscopy Today R33.9 - Retention of urine, unspecified AMB Urinalysis Automated Today Z13.9 - Encounter for screening, unspecified Patient Instructions: This note is constructed using voice recognition software. While every effort has been made to ensure accuracy engineering documentation specialist errors may have been included. Imaging studies, laboratory and physical exam results were discussed and reviewed in detail. No major barriers to patient understanding were identified. An opportunity to ask questions regarding the treatment plan was provided. All questions were answered. The patient expressed understanding and agreement with the above treatment plan. The patient is aware they should contact our office by phone for worsening of their current condition or the appearance of new urologic symptoms. Compliance is encouraged with any medications and followup testing that is ordered. It is a privilege to participate in the urologic care of your patient. If you have any questions or concerns regarding treatment for the above conditions, or other urologic issues, please do not hesitate to contact me. The office telephone contact is [phone]. Sincerely, Dr Aries Purvis MD, DONNY [facility] - Urology Compassionate Specialist Care for the Genitourinary System Coding Level of Care Code Est Pt Level 4 (67956) Complex EM visit Add On G2211 Diagnoses Prostate cancer C61 Bladder trabeculation N32.89 BPH (benign prostatic hyperplasia) N40.0 CPT Codes Cystoscopy - CPT: 52031-[id number] ([id number])
--- OUTSIDE RECORDS SUMMARY | 2025-02-16 09:18 | XMS_ITS | Encounter Summary ---
Author Organization [facility] Address [address] [place] [address] Care Team Providers Care Sheet Metal Duct Installer Name Role Phone Katlin Villegas MD Primary Care Provider [phone] Encounter Details Date Type Department Care Team (Late st Contact Info) Description 10/01/2024 Lab Requisition [facility] - Main Lab [address] [place] [address] Sahil Caraballo MD [address] [address] Personal history of adenomatous and serrated colon [...] polyp: Hyperplastic polyp 10/04/2024 9:07 AM EDT [facility] Clinical Information High risk colon cancer surveillance: Personal history of adenomatous colonic polyps Polyp 10/04/2024 9:07 AM EDT [facility] Gross Description A. Colon, polyp at 20cm: Labeled 20 cm polyp . Received in formalin is a soft, oquendo polypoid tissue with attached mucosa measuring 0.55 cm in greatest diameter, which is inked green at the base, wrapped in paper and submitted in toto in one cassette, one piece, multiple levels. TS 10/04/2024 9:07 AM EDT [facility] Disclaimer Unless otherwise specified, all tissue is 10% NB formalin fixed and paraffin embedded. 10/04/2024 9:07 AM EDT [facility] Tissue Colon structure / Unknown 09/30/2024 10/01/2024 9:21 AM EDT us Sahil Caraballo MD LAB PATHOLOGY ORDERABLES Kirsten neff Result [facility] [address] [place] [address], documented in this encounter Visit Diagnoses Diagnosis Personal history of adenomatous and serrated colon polyps documented in this encounter Care Teams Sheet Metal Duct Installer Relationship Specialty Start Date End Date Katlin Villegas MD [address] [place] [address] PCP - General Internal Medicine 06/25/24 documented as of this encounter
--- OUTSIDE RECORDS SUMMARY | 2025-02-16 09:19 | XMS_ITS | Encounter Summary ---
Author Organization [facility] Address [address] [place] [address] Care Team Providers Care Lotus Notes Developer Name Role Phone Malena Dwyer MD Primary Care Provider Kuldeep Conner MD Primary Care Provider [place] Encounter Details Date Type Department Care Team Description 05/04/2019 News Director Report Medical Records [address] [place] [address] Jonathan Baumann MD Social History Tobacco Use Types Packs/Day Years Used Date Smoking Tobacco: Never Smokeless Tobacco: Never Alcohol Use Standard Drinks/Week Comments Yes 0 (1 standard drink = 0.6 oz pur e alcohol) occasional wine Sex Assigned at Date Recorded Not on file documented as of this encounter Plan of Treatment Not on file documented as of this encounter Visit Diagnoses Not on filedocumented in this encounter Care Teams Lotus Notes Developer Relationship Specialty Start Date End Date Malena Dwyer MD PCP - General Internal Medicine 08/29/17 2 Kuldeep Pennington MD PCP - General Family Practice 09/03/21 documented as of this encounter
--- OUTSIDE RECORDS SUMMARY | 2025-02-16 09:19 | XMS_ITS | Clinical Summary ---
Author Organization [facility] Address [address] [place] [address] Care Team Providers Care Breaster Name Role Phone Malena Dwyer MD Primary Care Provider + Allergies Active Allergy Reactions Criticality Noted Date Comments Sulfamethoxazole-Trimethoprim 2018 Sulfa Antibiotics 05/04/2019 Medications Medication Sig Dispensed Refills Start Date End Date Status tamsulosin (FLOMAX) 0.4 MG CAPS Take 0.4 mg by mouth daily. 0 Active fluticasone (FLONASE) 50 MCG/ACT nasal spray spray/apply 1 spray in each nostril daily. 0 Active Active Problems No known active problems Social History Tobacco Use Types Packs/Day Years Used Date Smoking Tobacco: Never Smokeless Tobacco: Never Alcohol Use Standard Drinks/Week Comments Yes 0 (1 standard drink = 0.6 oz pur e alcohol) ocassionally glass of wine Sex and Gender Information Value Date Recorded Sex Assigned at Not on file Gender Identity Not on file Sexual Orientation Not on file Job Start Date Occupation Industry Not on file Not on file Not on file Last Filed Vital Signs Vital Sign Reading Time Taken Comments Blood Pressure 122/64 01/15/2022 2:09 PM EDT Pulse 67 01/15/2022 2:09 PM EDT Temperature 36.6 C (97.9 F) 01/15/2022 2:09 PM EDT Respiratory Rate - - Oxygen Saturation 98% 01/15/2022 2:09 PM EDT Inhaled Oxygen Concentration - - Weight 70.8 kg (156 lb) 01/15/2022 2:09 PM EDT Height 170.2 cm (5' 7 ) 01/15/2022 2:09 PM EDT Body Mass Index 24.43 01/15/2022 2:09 PM EDT Plan of Treatment Health Maintenance Due Date Last Done Comments Hepatitis C Screening 1950 Depression Screening 1962 Preventative Health Evaluation 1968 DTap / Tdap / Td (1 - Tdap) 1969 Colon Cancer Screening (Colonoscopy) 12/10/1995 Shingrix-Zoster Vaccine (1 o f 2) 2000 Fall Risk Assessment 12/10/2015 Pneumococcal Vaccine (1 of 1 - PCV) 12/10/2015 COVID-19 Vaccine (3 - 2023-2 5 season) 2024 03/12/2021, 09/27/2020 Influenza Vaccine (#1) 2025 , 03/13/2020 RSV Adult > 60+ Yrs or (1 - 1-dose 75+ series) 2025 Hepatitis B Vaccines Aged Out No long er eligible based on patient's age to complete this topic RSV Ped < 20 months Aged Out No longe r eligible based on patient's age to complete this topic Care Teams Breaster Relationship Specialty Start Date End Date Malena Dwyer MD [address] [facility] [address] [place] [id number] PCP - General Internal Medicine 04/14/19
--- OUTSIDE RECORDS SUMMARY | 2025-02-16 09:19 | XMS_ITS | Clinical Summary ---
Author Organization Patient Business Ser [facility] [place] Address [address] [place] [address] Care Team Providers Care Boss Dyer Name Role Phone Katlin Villegas MD Primary Care Provider [phone] Medications polyethylene glycol (Golytely) 236-22.74-6.74 -5.86 gram solution Take 4L by mouth once for one dose. May substitue any PEG. Starting at 6PM the night before your procedure drink 1 8oz glasses at your own pace until you complete half of the gallon. Finish 2nd half of the gallon 5 hours before your procedure. 4000 mL 5 Active bisacodyL (DULCOLAX) 5 mg EC tablet Take 2 tablets by mouth right before beginning bowel prep. 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 Caraballo Medical History Medical History Date Comments Allergic rhinitis DX:Allergic rh initis; COMMENT: chronic, following with Dr. Ocampo (ENT) for allergy shots BPH (benign prostatic hyperplasia) DX:BPH (benign prostatic hyperplasia) Urinary retention DX:Urinary ret ention; COMMENT: post-op after hernia repair Osteoarthritis DX:Osteoarthriti s S/P hip replacement, bilateral D X:S/P hip replacement, bilateral Family History Medical History Relation Name Comments Heart attack Father Glaucoma Paternal Grandfather Parkinson's Disease Paternal Grandmother Relation Name Status Comments Brother 1 Alive Brother 2 Alive Daughter 1 Alive Daughter 2 Alive Daughter 3 Alive Father (Age 71) Mother Paternal Grandfather (Age 87) Paternal Grandmother (Age 70) Sister Alive Social History Tobacco Use Types Packs/Day Years [...] Orientation Straight 08/26/2024 2: 30 PM EST Obstetrics History Last Filed Vital Signs Vital Sign Reading Time Taken Comments Blood Pressure 122/64 01/15/2022 2:09 PM EDT Sitting Right arm Pulse 67 01/15/2022 2:09 PM EDT Temperature - - Respiratory Rate - - Oxygen Saturation - - Inhaled Oxygen Concentration - - Weight 70.8 kg (156 lb) 01/15/2022 2:09 PM EDT Height 170.2 cm (5' 7 ) 01/15/2022 2:09 PM EDT Body Mass Index 24.43 01/15/2022 2:09 PM EDT Plan of Treatment Health Maintenance Due Date Last Done Comments Pneumococcal Vaccine: 50+ Years (1 of 1 - PCV) 2000 Zoster Vaccines (1 of 2) 2000 Abdominal Aortic Aneurysm (AAA) Screen 10/09/2021 Cholesterol Screening (Lipid Panel) 10/09/2021 Falls Risk Assessment 10/09/2021 Hepatitis C Screening 10/09/2021 Medicare Annual Wellness Visit 10/09/2021 Social Influencers of Health Screening 10/09/2021 COVID-19 Vaccine (2023-2 5 season) 2024 03/12/2021, 09/27/2020 Depression Screening 06/23/2024 Influenza Vaccine (#1) 2025 , 03/13/2020 RSV Immunization Adult Patients (1 - 1-dose 75+ series) 2025 DTaP,Tdap,and Td Vaccines (2 - Td or Tdap) 01/01/2029 01/01/2019 Colorectal Cancer Screening: Colonoscopy 09/30/2034 09/30/2024, 09/22/2024 HIB Vaccines Aged Out No longer eligi ble based on patient's age to complete this topic HPV Vaccines Aged Out No longer eligi ble based on patient's age to complete this topic Hepatitis A Vaccines Aged Out No long er eligible based on patient's age to complete this topic Hepatitis B Vaccines Aged Out No long er eligible based on patient's age to complete this topic IPV Vaccines Aged Out No longer eligi ble based on patient's age to complete this topic MMR Vaccines Aged Out No longer eligi ble based on patient's age to complete this topic Meningococcal ACWY Vaccine Aged Out N o longer eligible based on patient's age to complete this topic Meningococcal B Vaccine Aged Out No l onger eligible based on patient's age to complete this topic RSV Immunization Patients Under 20 months Aged Out No longer eligible b ased on patient's age to complete this topic Varicella Vaccines Aged Out No longer eligible based on patient's age to complete this topic Procedures Procedure Name Priority Date/Time Associated Diagnosis Comments EXTERNAL COLONOSCOPY REPORT Routine 09/30/2024 1:54 PM EDT from Last 3 Months or Most Recently Relevant to Health Maintenance Results * External Colonoscopy Report (09/30/2024 1:54 PM EDT) Anatomical Region Laterality Modality Endoscopy us Historical Provider GI~PROCEDURE ORDERABLES F inal Result from Last 3 Months or Most Recently Relevant to Health Maintenance Insurance [employer] MEDICARE ADVANTAGE Care Teams Boss Dyer Relationship Specialty Start Date End Date Katlin Villegas MD [address] [place] [address] PCP - General Internal Medicine 06/25/24
--- OUTSIDE RECORDS SUMMARY | 2025-02-16 09:19 | XMS_ITS | Encounter Summary ---
Author Organization [facility] Address [address] [place] [address] Care Team Providers Care Manager Of Distribution Name Role Phone Kuldeep Pennington MD Primary Care Provider Glenn hill Encounter Details Date Type Department Care Team Description 01/15/2022 Student Records Coordinator Report Medical Records [address] [place] [id number] Jonathan Baumann MD Social History Tobacco Use [...] on filedocumented in this encounter Care Teams Manager Of Distribution Relationship Specialty Start Date End Date Kuldeep Pennington MD PCP - General Family Practice 09/03/21 documented as of this encounter
--- OUTSIDE RECORDS SUMMARY | 2025-02-16 09:19 | XMS_ITS | Encounter Summary ---
Author Organization [facility] Address [address] [place] [address] Care Team Providers Care Engineering Writer Name Role Phone Malena Dwyer MD Primary Care Provider Kuldeep Conner MD Primary Care Provider Glenn hill Reason for Visit * Reason Onset Date Comments Provider Call Back 10/10/2020 Encounter Details Date Type Department Care Team Description 10/10/2020 Telephone Medicine/Pediatrics - [address] [phone] Malena Dwyer MD Provider Call Back Social History Tobacco Use Types Packs/Day Years Used Date Smoking Tobacco: Never Smokeless Tobacco: Never Alcohol Use Standard Drinks/Week Comments Yes 0 (1 standard drink = 0.6 oz pur e alcohol) occasional wine Sex Assigned at Date Recorded Not on file documented as of this encounter Miscellaneous Notes * Telephone Encounter - Emily Ibrahim M.A. - 10/11/2020 10:42 AM EDT S/W patient and at the present time he is in [place] taking care of his brother who is having medical problems and he is unsure when he will be home. He did say that he saw the traveling nurse from his insurance company in March and everything was great. I told him I would discuss this with his PCP * Telephone Encounter - Debora Crowe M.A. - 10/11/2020 10:38 AM EDT Patient returning Emily's call, thank you. * Telephone Encounter - Yazmin Medina - 10/11/2020 9:58 AM EDT Patient called to return provider phone to Emily Ibrahim M.A, Transferred call to ex [phone],unavailable,Patient request call bacl * Telephone Encounter - Emily Ibrahim M.A. - 10/11/2020 8:19 AM EDT LMOM for pt to call Emily, please transfer to ex [phone] (Please, no blind transfers) * Telephone Encounter - Malena Dwyer MD - 10/10/2020 5:38 PM EDT Patient's last visit in the office was March of 2019. The reason for asking him to be seen is notfor the refill, it is because he has not had a blood pressure check or exam in a year and a half. Medication will be refilled, but he needs an in office visit scheduled. * Telephone Encounter - Rhea Frank M.A. - 10/10/2020 10:56 AM EDT Last seen 06/08/20 Lab Results Component Value Date NA 139 01/01/2019 K 3.8 01/01/2019 CO2 27 01/01/2019 CL 106 01/01/2019 BUN 15 01/01/2019 CREAT 0.83 01/01/2019 GLU 97 01/01/2019 CA 9.2 01/01/2019 GFR > 60 01/01/2019 * Telephone Encounter - Sis Stallworth - 10/10/2020 9:51 AM EDT Caller requesting call back from provider: Is the caller the patient? YES If caller is not the patient, what is the callers name? N/A Callers relationship to patient? N/A If person calling is not the patient themselves, is there a verbal release in FYI or permanent comments for this person: NO Reason for call back: Patient is calling to find out why he has no refills on his tamsulosin (FLOMAX) 0.4 MG 24 hr capsule. He is traveling at the moment and will not be able to come for an appointment. I let him know we can do telehealth and he said he didn't want to have to see the dr every time he needs a refill. He does not need the refill until next month. Please advise. Caller offered to speak with the nurse for assistance: YES Response: Patient offered to speak with nurse for assistance and patient agreed. Message forwarded to nurse. documented in this encounter Plan of Treatment Not on file documented as of this encounter Visit Diagnoses Not on filedocumented in this encounter Care Teams Engineering Writer Relationship Specialty Start Date End Date Malena Dwyer MD PCP - General Internal Medicine 08/29/17 2 Kuldeep Pennington MD PCP - General Family Practice 09/03/21 documented as of this encounter
--- OUTSIDE RECORDS SUMMARY | 2025-02-16 09:19 | XMS_ITS | Encounter Summary ---
Author Organization [facility] Address [address] [place] [address] Care Team Providers Care Wet End Tester Name Role Phone Malena Dwyer MD Primary Care Provider Kuldeep Conner MD Primary Care Provider Glenn hill Reason for Visit * Reason Onset Date Comments refill request 10/10/2020 Encounter Details Date Type Department Care Team Description 10/10/2020 Refill Medicine/Pediatrics [address] [phone] Malena Dwyer MD refill request Social History Tobacco Use Types Packs/Day Years [...] on filedocumented in this encounter Care Teams Wet End Tester Relationship Specialty Start Date End Date Malena Dwyer MD PCP - General Internal Medicine 08/29/17 2 Kuldeep Pennington MD PCP - General Family Practice 09/03/21 documented as of this encounter
--- OUTSIDE RECORDS SUMMARY | 2025-02-16 09:19 | XMS_ITS | Encounter Summary ---
Author Organization [facility] Address [address] [place] [address] Care Team Providers Care Quarantine Inspector Name Role Phone Malena Dwyer MD Primary Care Provider Kuldeep Conner MD Primary Care Provider Glenn hill Encounter Details Date Type Department Care Team Description 03/07/2020 Computer Systems Auditor Report Medical Records [address] [place] [address] Jontahan Baumann MD Social History Tobacco Use Types [...] on filedocumented in this encounter Care Teams Quarantine Inspector Relationship Specialty Start Date End Date Malena Dwyer MD PCP - General Internal Medicine 08/29/17 2 Kuldeep Pennington MD PCP - General Family Practice 09/03/21 documented as of this encounter
--- OUTSIDE RECORDS SUMMARY | 2025-02-16 09:19 | XMS_ITS | Encounter Summary ---
Author Organization [facility] Address [address] [place] [address] Care Team Providers Care Inker And Opaquer Name Role Phone Kuldeep Pennington MD Primary Care Provider Glenn hill Encounter Details Date Type Department Care Team Description 01/30/2022 Clinical Project Leader Report Medical Records [address] [place] [id number] Jonathan Baumann MD Social History Tobacco Use [...] on filedocumented in this encounter Care Teams Inker And Opaquer Relationship Specialty Start Date End Date Kuldeep Pennington MD PCP - General Family Practice 09/03/21 documented as of this encounter
--- OUTSIDE RECORDS SUMMARY | 2025-02-16 09:19 | XMS_ITS | Encounter Summary ---
Author Organization [facility] Address [address] [place] [address] Care Team Providers Care Christian Counselor Name Role Phone Malena Dwyer MD Primary Care Provider Kuldeep Conner MD Primary Care Provider Glenn hill Encounter Details Date Type Department Care Team Description 01/02/2021 Telephone Adult Medicine [address] [address] Malena Dwyer MD Social History Tobacco Use Types Packs/Day Years Used Date Smoking Tobacco: Never Smokeless Tobacco: Never Alcohol Use Standard Drinks/Week Comments Yes 0 (1 standard drink = 0.6 oz pur e alcohol) occasional wine Sex Assigned at Date Recorded Not on file COVID-19 Exposure Response Date Recorded In the last month, have you been in contact with someone who was confirmed or suspected to have Coronavirus / COVID-19? No / Unsure 12/28/2020 11:58 AM EDT documented as of this encounter Miscellaneous Notes * Telephone Encounter - Mily Kohler NP - 01/03/2021 8:51 AM EDT As below but notify lyme comfirmation came back NEGATIVE. No ongoing infection. * Telephone Encounter - Rhea Frank M.A. - 01/02/2021 10:39 AM EDT Left message to patient to call office back, I am at extension [phone] * Telephone Encounter - Rhea Frank M.A. - 01/02/2021 10:35 AM EDT ----- Message from Mily Kohler NP sent at 01/02/2021 10:19 AM EDT ----- Please notify testing is negative so far; we have to await western blot results to confirm lyme eradicated. Should take about 1 week for that result. documented in this encounter Plan of Treatment Not on file documented as of this encounter Visit Diagnoses Not on filedocumented in this encounter Care Teams Christian Counselor Relationship Specialty Start Date End Date Malena Dwyer MD PCP - General Internal Medicine 08/29/17 2 Kuldeep Pennington MD PCP - General Family Practice 09/03/21 documented as of this encounter
== END 2025-02-16 09:50 | disposition home or self-care (01) ==
LOC: HO.HUSH 08:51
PROVIDERS: PCP Internal Medicine; Visit Provider Urology
DX: C61 Malignant neoplasm of prostate (principal); N32.89 Other specified disorders of bladder; N40.0 Benign prostatic hyperplasia without lower urinary tract symptoms; R33.9 Retention of urine, unspecified; Z13.9 Encounter for screening, unspecified
CPT/HCPCS: 52000; 99214

== ENCOUNTER → 2025-02-16 08:51 | Outpatient (BNVA) | payer MEDICARE, SELFPAY | PROVIDERS: PCP Internal Medicine; Visit Provider Urology | DX: C61 Malignant neoplasm of prostate (principal); N32.89 Other specified disorders of bladder; N40.0 Benign prostatic hyperplasia without lower urinary tract symptoms; R33.9 Retention of urine, unspecified; Z13.9 Encounter for screening, unspecified | CPT/HCPCS: 52000; 81003; 99212 ==

== ENCOUNTER 2025-05-26 08:34 | Outpatient (AMB) | payer MEDICARE, SELFPAY ==
--- NOTE | 2025-05-26 08:51 | MHC.PC.OV ---
Vital Signs 05/26/25 08:52 Height 5 ft 7 in Weight 161 lb BMI 25.2 BP 128/80 Blood Pressure Location Lt brachial Position Sitting Respiration 17 Pulse 80 Pulse Source Pulse Oximeter Temp 98.0 F Temp Source Oral Pulse Oximetry (%) 96 Oxygen Delivery Method Room Air Intake Visit Reasons: Annual PE Intake Note: Pt is here today for PE. Allergies sulfamethoxazole (From Bactrim) Adverse Reaction (Verified 05/26/25 08:52) Fatigued trimethoprim (From Bactrim) Adverse Reaction (Verified 05/26/25 08:52) Fatigued Medication List - Last Reconciled 05/26/25 by Katlin Villegas MD finasteride 5 mg PO DAILY 90 days tamsulosin 0.8 mg (2 x 0.4 mg) PO DAILY 90 days Tobacco use date assessed: 05/26/25 Fall risk assessment: No Falls in past year Last assessed Fall Risk: 05/26/25 Dental Screening Dental Screen Date: 05/26/25 Did you have a dental visit in the last 12 months?: Yes Did you have a dental problem in the last 6 months where you did not have access to dental care?: No Was dental information given to patient?: Patient has dentist HPI Annual PE HPI Details Pt presents for PE. he will be starting green light therapy for prostate cancer and is established with Dr. Purvis. [facility] Medical History (Updated 05/26/25 @ 09:42 by Katlin Villegas MD) Annual physical exam Microscopic hematuria Hyperglycemia Prostate cancer Neutropenia Surgical History (Updated 05/26/25 @ 09:43 by Katlin Villegas MD) Hx of colonoscopy History of bilateral hip arthroplasty Hx of inguinal hernia repair Hx of heart surgery Family History Mother Mental health disorder Social History Household Members Other:: , lives alone, Housing: House Patient Tobacco Use Status: Never used Tobacco e-Cigarette/Vaping Use: Never Used service: No Current occupational status: retired Cognitive needs: No Hearing needs: No Vision needs: Yes Questionnaire PHQ-9 Over the last 2 weeks, how often have you been bothered by any of the following problems? 1. Little interest or pleasure in doing things: not at all 2. Feeling down, depressed, or hopeless: not at all 3. Trouble falling or staying asleep, or sleeping too much: not at all 4. Feeling tired or having little energy: not at all 5. Poor appetite or overeating: not at all 6. Feeling bad about yourself - or that you are a failure or have let yourself or your family down: not at all 7. Trouble concentrating on things, such as reading the newspaper or watching television: not at all 8. Moving or speaking so slowly that other people could have noticed. Or the opposite - being so fidgety or restless that you have been moving around a lot more than usual: not at all 9. Thoughts that you would be better off or of hurting yourself in some way: not at all Total score: 0 Depression Screening Interpretation: Negative Depression Screening Done: Yes 14400 - PHQ-9 Billing: Yes Source: Developed by Drs. Alexandru Paniagua, Yeny Arechiga, Gurdeep Crooks and colleagues, with an educational mine from [employer]. Thrive Questionnaire Date Thrive assessed: 05/26/25 I am a: Patient What is your living situation today?: I have a steady place to live Within the past 12 months, did the food you bought not last and you didn't have the money to get more?: Never true Within the past 12 months, did you worry whether your food would run out before you got money to buy more?: Never true Do you have trouble paying for medicines?: No Do you have trouble getting transportation to medical appointments?: No Do you have trouble paying your heating and electricity bill?: No Do you have trouble taking care of your child, family member or friend?: No Do you have trouble with day-to-day activities such as bathing, preparing meals, shopping, managing finances, etc.?: No Are you currently unemployed and looking for a job?: No Are you interested in more education?: Yes Please select the resources that you would like help with: None Currently or been in a relationship where the following occur: No concerns reported THRIVE Score: 0 AUDIT C Alcohol Use Questionnaire (AUDIT-C) 1. How often do you have a drink containing alcohol?: Never Total Score: 0 ANNA-7 AMB Questionnaire ANNA-7 Date ANNA - 7 assessed: 05/26/25 Feeling nervous, anxious, or on edge: 0 = Not at all Not being able to stop or control worryin = Not at all Worrying too much about different things: 0 = Not at all Trouble relaxin = Not at all Being so restless that it is hard to sit still: 0 = Not at all Becoming easily annoyed or irritable: 0 = Not at all Feeling afraid as if something awful might happen: 0 = Not at all Total ANNA-7 score (0-4 normal; 5-9 mild; 10-14 moderate; 15-21 severe): 0 Source: Developed by Drs. Alexandru Paniagua, Yeny Arechiga, Gurdeep Crooks and colleagues, with an educational mine from [employer]. ANNA-7 Assessment Billing ANNA-7 Assessment Tool: ANNA-7 Assessment 38195 Review of Systems Const All systems reviewed & are unremarkable except as noted in HPI and below Eyes Reports no additional complaints ENT Reports no additional complaints Card Reports no additional complaints Resp Reports no additional complaints GI Reports no additional complaints Reports no additional complaints Physical exam (Primary Care) Vital Signs: Last Vital Signs Temp 98.0 F 05/26/25 08:52 Pulse 80 05/26/25 08:52 Resp 17 05/26/25 08:52 BP 128/80 05/26/25 08:52 Pulse Ox 96 05/26/25 08:52 Oxygen Delivery Method Room Air 05/26/25 08:52 BMI result Body Mass Index 25.2 Tobacco/Smoking Status: Tobacco use Status Tobacco use date assessed 05/26/25 05/26/25 09:02 Patient Tobacco Use Status Never used Tobacco 05/26/25 08:57 e-Cigarette/Vaping Use Never Used 05/26/25 08:57 PHQ-9: PHQ-9 Score PHQ-9: Total score 0 05/26/25 09:02 Depression Screening Interpretation: Negative Thrive Assessment: Date of Thrive Assessment Date Thrive assessed 05/26/25 05/26/25 09:02 Currently or been in a relationship where the following occur: No concerns reported Const General: no acute distress HENMT Head: Yes normal to inspection Ears: hearing grossly normal bilaterally Mouth: Normal oral and palatal mucosa present Eyes General: appearance normal, both eyes and all related structures Neck Neck: Yes no lymphadenopathy and Yes supple Resp Effort & Inspection: normal respiratory effort Auscultation: clear to auscultation bilaterally Cardio Rhythm: regular rhythm Heart sounds: S1 normal heart sound present and S2 normal heart sound present GI Inspection: Yes normal to inspection Palpation (GI): Soft to palpation Percussion: Yes normal to percussion Auscultation: normal bowel sounds Coding Level of Care Code Est Pt Prev Care >65y(40982) Diagnoses Annual physical exam Z00.00 Hyperglycemia R73.9 Prostate cancer C61 Additional Codes ANNA-7 Assessment Billing - ANNA-7 Assessment Tool: ANNA-7 Assessment 10301 ([id number]) PHQ-9 - 43450 - PHQ-9 Billing: Yes ([id number]) Assessment & Plan Assessment & Plan (1) Annual physical exam: Code(s): Z00.00 - Encounter for general adult medical examination without abnormal findings Category: Medical Plan: Well-balanced diet regular physical activity discussed with the patient. He will have a fasting blood work today. Patient had a colonoscopy in September of [address] Bradshaw and 1 polyp was found. We will obtain pathology report (2) Hyperglycemia: Comment: ADA diet Code(s): R73.9 - Hyperglycemia, unspecified Category: Medical Plan: Continue ADA diet check A1c (3) Prostate cancer: Comment: Low volume, grade group 2 and 3, large prostate 125 g, surveillance approach, follows up with Dr. Purvis, patient will be starting greenlight 05/2025 Code(s): C61 - Malignant neoplasm of prostate Category: Medical Plan: Follow-up with Dr. Purvis Orders: Orders Comprehensive [place]. Panel Fast Today C61 - Malignant neoplasm of prostate, R73.9 - Hyperglycemia, unspecified, Z00.00 - Encounter for general adult medical examination without abnormal findings Complete Blood Count Auto Diff Today C61 - Malignant neoplasm of prostate, R73.9 - Hyperglycemia, unspecified, Z00.00 - Encounter for general adult medical examination without abnormal findings Lipid Panel Today C61 - Malignant neoplasm of prostate, R73.9 - Hyperglycemia, unspecified, Z00.00 - Encounter for general adult medical examination without abnormal findings UA w Microscopic Today C61 - Malignant neoplasm of prostate, R73.9 - Hyperglycemia, unspecified, Z00.00 - Encounter for general adult medical examination without abnormal findings Hemoglobin A1c Today R73.9 - Hyperglycemia, unspecified
[2025-05-26 08:52] VITALS: BP 128/80; PULSE 80; RESP 17; TEMP 36.7; O2SAT 96; BMI 25.2
--- OUTSIDE RECORDS SUMMARY | 2025-05-26 09:22 | XMS_ITS | Encounter Summary ---
Author Organization [facility] Address [address] [place] [address] Care Team Providers Care Practical Nurse Name Role Phone Katlin Villegas MD Primary Care Provider [phone] Encounter Details Date Type Department Care Team (Late st Contact Info) Description 10/01/2024 Lab Requisition [facility] - Main Lab [address] [place] [address] Sahil Caraballo MD [address] [address] Personal history of adenomatous and serrated colon [...] polyp: Hyperplastic polyp 10/04/2024 9:07 AM EDT [facility] ([facility] HOSPITAL LAB at 0907 EDT Clinical Information High risk colon cancer surveillance: Personal history of adenomatous colonic polyps Polyp 10/04/2024 9:07 AM EDT [facility] LAB Gross Description A. Colon, polyp at 20cm: Labeled 20 cm polyp . Received in formalin is a soft, oquendo polypoid tissue with attached mucosa measuring 0.55 cm in greatest diameter, which is inked green at the base, wrapped in paper and submitted in toto in one cassette, one piece, multiple levels. TS 10/04/2024 9:07 AM EDT [facility] LAB Disclaimer Unless otherwise specified, all tissue is 10% NB formalin fixed and paraffin embedded. 10/04/2024 9:07 AM EDT [facility] LAB Tissue Colon structure / Unknown 09/30/2024 10/01/2024 9:21 AM EDT us Sahil Caraballo MD LAB PATHOLOGY ORDERABLES Kirsten neff Result [facility] [address] [place] [address], documented in this encounter Visit Diagnoses Diagnosis Personal history of adenomatous and serrated colon polyps documented in this encounter Care Teams Practical Nurse Relationship Specialty Start Date End Date Katlin Villegas MD [address] [place] [address] PCP - General Internal Medicine 06/25/24 documented as of this encounter
--- OUTSIDE RECORDS SUMMARY | 2025-05-26 09:22 | XMS_ITS | Clinical Summary ---
Author Organization Patient Business Ser [facility] Address [address] [place] [address] Care Team Providers Care Sports Journalist Name Role Phone Katlin Villegas MD Primary Care Provider [phone] Medications polyethylene glycol (Golytely) 236-22.74-6.74 -5.86 gram [...] the office 2 tablet 5 Active Immunizations Immunization Administration Dates Next Due [employer] SARS-CoV-2 COVID -19, vector-nr, rS-Ad26, preservative free 09/27/2020 Surgical History Surgery Date Site/Laterality Comments HIP ARTHROPLASTY 2009 (R), 2016 (L) Bilateral PROCEDURE: HISTORICAL HIP REPLACEMENT; COMMENT: NEOS CARDIAC SURGERY 1959 PROCEDURE: HISTORICAL HEART SURGERY(ASD,VSD,VALVES); COMMENT: 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, left ventricular lesion per pt report HERNIA REPAIR 2014 Left PROCEDURE: HISTORICAL HERNIA REPAIR/ING OTHER SURGICAL HISTORY 2016 PROCEDURE: [place] RHINOPLASTY PRIMARY W/MAJOR SEPTAL REPAIR; COMMENT: dev [...] 10/09/2021 Social Influencers of Health Screening 10/09/2021 Depression Screening 06/23/2024 COVID-19 Vaccine (3 2024-2 6 season) 2025 03/12/2021, 09/27/2020 Influenza Vaccine (#1) 2025 , [...] Maintenance Insurance [employer] MEDICARE ADVANTAGE Care Teams Sports Journalist Relationship Specialty Start Date End Date Katlin Villegas MD [address] [place] [address] PCP - General Internal Medicine 06/25/24
--- OUTSIDE RECORDS SUMMARY | 2025-05-26 09:22 | XMS_ITS | Clinical Summary ---
Author Organization [facility] Prior to 11/20/24 Address [address] [place] [address] Care Team Providers Care Business Machines Teacher Name Role Phone Malena Dwyer MD Primary [...] - PCV) 12/10/2015 COVID-19 Vaccine (3 - 2024-2 6 season) 2025 03/12/2021, 09/27/2020 Influenza Vaccine (#1) 2025 , 03/13/2020 RSV Adult > 60+ Yrs or (1 - 1-dose 75+ series) 2025 Hepatitis B Vaccines Aged Out No long er eligible based on patient's age to complete this topic RSV Ped < 20 months Aged Out No longe r eligible based on patient's age to complete this topic Care Teams Business Machines Teacher Relationship Specialty Start Date End Date Malena Dwyer MD [address] [facility] [[email or web address]] [address] [place] [phone] PCP - General Internal Medicine 04/14/19
== END 2025-05-26 09:44 | disposition home or self-care (01) ==
LOC: HO.HMCC 08:35
PROVIDERS: PCP Internal Medicine; Visit Provider Internal Medicine
DX: Z00.00 Encounter for general adult medical examination without abnormal findings (principal); R73.9 Hyperglycemia, unspecified; C61 Malignant neoplasm of prostate

== ENCOUNTER 2025-05-26 08:34 | Outpatient (REF) | payer MEDICARE, SELFPAY | END 2025-05-26 08:35 | disposition home or self-care (01) | LOC: HO.HMGCLDS 08:34 | PROVIDERS: PCP Internal Medicine; Visit Provider Internal Medicine | DX: Z00.00 Encounter for general adult medical examination without abnormal findings (principal); R73.9 Hyperglycemia, unspecified; C61 Malignant neoplasm of prostate | CPT/HCPCS: 96127; 99397 ==

== ENCOUNTER 2025-05-27 07:46 | Outpatient (REF) | payer MEDICARE, SELFPAY ==
--- OUTSIDE RECORDS SUMMARY | 2025-05-27 07:52 | XMS_ITS | Clinical Summary ---
Author Organization Patient Business Ser [facility] Address [address] [place] [address] Care Team Providers Care Lead Applications Developer Name Role Phone Katlin Villegas MD Primary Care Provider [phone] Medications polyethylene glycol (Golytely) 236-22.74-6.74 -5.86 gram [...] Active Immunizations Immunization Administration Dates Next Due [employer] SARS-CoV-2 COVID -19, vector-nr, rS-Ad26, preservative free 09/27/2020 Surgical History Surgery Date Site/Laterality Comments HIP ARTHROPLASTY 2009 (R), 2016 (L) Bilateral PROCEDURE: HISTORICAL HIP REPLACEMENT; COMMENT: NEOS CARDIAC SURGERY 1959 PROCEDURE: HISTORICAL HEART SURGERY(ASD,VSD,VALVES); COMMENT: 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
--- OUTSIDE RECORDS SUMMARY | 2025-05-27 07:52 | XMS_ITS | Encounter Summary ---
Author Organization [facility] Address [address] [place] [address] Care Team Providers Care School Program Director Name Role Phone Katlin Villegas MD Primary Care Provider [phone] Encounter Details Date Type Department Care Team (Late st Contact Info) Description 10/01/2024 Lab Requisition [facility] - Main Lab [address] [place] [address] Sahil Caraballo MD [address] [address] Personal history of adenomatous and serrated colon [...] polyp: Hyperplastic polyp 10/04/2024 9:07 AM EDT [facility] HOSPITAL LAB at 0907 EDT Clinical Information High risk colon cancer surveillance: Personal history of adenomatous colonic polyps Polyp 10/04/2024 9:07 AM EDT [facility] LAB Gross Description A. Colon, polyp at 20cm: Labeled 20 cm polyp . Received in formalin is a soft, oquendo polypoid tissue with attached mucosa measuring 0.55 cm in greatest diameter, which is inked green at the base, wrapped in paper and submitted in toto in one cassette, one piece, multiple levels. TS 10/04/2024 9:07 AM EDT [facility] Disclaimer Unless otherwise specified, all tissue is 10% NB formalin fixed and paraffin embedded. 10/04/2024 9:07 AM EDT [facility] Tissue Colon structure / Unknown 09/30/2024 10/01/2024 9:21 AM EDT us Sahil Caraballo MD LAB PATHOLOGY ORDERABLES Kirsten neff Result [facility] [address] [place] [address], documented in this encounter Visit Diagnoses Diagnosis Personal history of adenomatous and serrated colon polyps documented in this encounter Care Teams School Program Director Relationship Specialty Start Date End Date Katlin Villegas MD [address] [place] [address] PCP - General Internal Medicine 06/25/24 documented as of this encounter
--- OUTSIDE RECORDS SUMMARY | 2025-05-27 07:52 | XMS_ITS | Clinical Summary ---
Author Organization [facility] Prior to 11/20/24 Address [address] [place] [address] Care Team Providers Care Rail Switchman Name Role Phone Malena Dwyer MD Primary [...] age to complete this topic Care Teams Rail Switchman Relationship Specialty Start Date End Date Malena Dwyer MD [address] [facility] [address] [place] [phone] PCP - General Internal Medicine 04/14/19
[2025-05-27 10:27] LABS: Appearance Urine Cloudy; Glucose Urine UA Negative (Negative); PH 7.0 (5.0-9.0); Specific Gravity - Urine 1.020 (1.005-1.025); UMIC TRIGGER UA YES
[2025-05-27 10:37] LABS: Alanine Aminotransferase 20 U/L (0-40); Albumin Level 4.7 g/dL (3.5-5.0); Alkaline Phosphatase 81 U/L (39-117); Anion Gap 11 (12-20); Aspartate Amino Transferase 33 U/L (5-37); Blood Urea Nitrogen 15 mg/dL (9-16); Calcium 9.2 mg/dL (8.4-10.2); Carbon Dioxide 27 mmol/L (22-29); Chloride 107 mmol/L (96-108); Cholesterol 153 mg/dL (<200); Estimated Glomerular Filt Rate > 60; HDL Cholesterol 48 mg/dL (>40); Potassium 3.9 mmol/L (3.3-5.1); Sodium 141 mmol/L (135-145); Total Protein 7.0 g/dL (6.5-8.0); Triglycerides 48 mg/dL (<150)
[2025-05-27 10:39] LABS: Hematocrit 37.5 % (42.0-52.0); Hemoglobin 12.3 g/dl (14.0-18.0); Mean Corpuscular HGB Conc 32.8 g/dl (31.0-36.0); Mean Corpuscular Hemoglobin 31.2 pg (27.0-33.0); Mean Corpuscular Volume 95.2 fL (80.0-98.0); NRBC Abs Auto 0.000 X10*3/uL (0.0-0.012); NRBC Pct Auto 0.0 /100WBC (0.0-0.2); PLT CLUMP 1; Red Blood Count 3.94 X10*6/uL (4.60-5.80)
[2025-05-27 10:47] LABS: WBC ABN SCTR FOR CBC 1
[2025-05-27 11:17] LABS: Atypical Lymphs Percent Manual 6 % (0-6); Band Neutrophils Percent 4 % (3-5); Basophils Percent Manual 2 % (0-2); Lymphocytes Percent Manual 44 % (20-40); Monocytes Percent Manual 18 % (2-11); Myelocytes Percent 2 %; Neutrophils Percent Manual 24 % (45-73)
[2025-05-27 11:20] LABS: Ovalocytes 1+ (5-14) /OIF; RBC Morphology NOTED
[2025-05-27 11:21] LABS: Macrocytosis 1+ (5-14) /OIF
[2025-05-27 11:22] LABS: Schistocytes 2+ (3-5) /OIF
[2025-05-27 11:24] LABS: Basophilic Stippling 1+ (0-2) /OIF; Tear Drop Cells 1+ (0-2) /OIF
[2025-05-27 11:26] LABS: Atypical Lymph Absolute Manual 0.2 x10*3/uL; Basophils Abs Manual 0.1 X10*3/uL (0.0-0.2); Lymphocytes Absolute Manual 1.6 X10*3/uL (1.2-4.9); Monocytes Absolute Manual 0.6 X10*3/uL (0.1-1.2); Myelocytes Absolute 0.1 X10*/uL; Neutrophils Absolute Manual 1.0 X10*3/uL (2.0-8.3); White Blood Count 3.6 X10*3/uL (4.8-10.8)
== END 2025-05-27 07:47 | disposition home or self-care (01) ==
LOC: HO.HMGCLDS 07:46
PROVIDERS: PCP Internal Medicine; Visit Provider Internal Medicine
DX: Z00.00 Encounter for general adult medical examination without abnormal findings (principal); Z13.6 Encounter for screening for cardiovascular disorders; C61 Malignant neoplasm of prostate; R73.9 Hyperglycemia, unspecified
CPT/HCPCS: 36415; 80053; 80061; 81001; 83036; 85007; 85027

== ENCOUNTER 2025-05-30 08:30 | Day surgery (SDC) | payer MEDICARE, SELFPAY ==
--- NOTE | 2025-05-25 12:16 | HO.ANESPROP2 ---
Documented by User: Kiera Moulton NP 05/25/25 12:27 HPI - Anesthesia Eval Consult details Narrative: 74yo M for Laser Ablation Prostate w/Green Light VSD repair at age 10. No further cardiology follow. No CP/SOB with active lifestyle, maintaining [facility] Active Problems Active Problems: All Active Problems (Updated 05/24/24 @ 09:13 by Katlin Villegas MD) Prostate cancer (Acute) Incomplete bladder emptying (Acute) Bladder trabeculation (Acute) Diverticula, bladder (Acute) Enlarged prostate (Acute) Microscopic hematuria (Acute) Elevated PSA (Acute) Left flank pain (Acute) Hyperglycemia (Acute) Annual physical exam (Acute) Hx of colonoscopy (Acute) BPH (benign prostatic hyperplasia) (Acute) Hx of inguinal hernia repair (Acute) History of bilateral hip arthroplasty (Acute) Hx of heart surgery (Acute) Neutropenia (Acute) Past Medical History Medical History (Updated 05/26/25 @ 09:42 by Katlin Villegas MD) Annual physical exam Microscopic hematuria Hyperglycemia Prostate cancer Neutropenia Family History Family History Mother Mental health disorder Surgical History Surgical History (Updated 05/26/25 @ 09:43 by Katlin Villegas MD) Hx of colonoscopy History of bilateral hip arthroplasty Hx of inguinal hernia repair Hx of heart surgery Social History Social History Household Members Other:: , lives alone, Housing: House Are you a primary assurance services manager health care to a significant other at home: No Do you presently have visiting nurse or other home services: No Patient Tobacco Use Status: Never used Tobacco e-Cigarette/Vaping Use: Never Used Second Hand Smoke Exposure: No Use of substances other than those prescribed or required for medical reasons: No Have you been hit, kicked, punched, or otherwise hurt by someone within the past year? If so, by whom?: No Are you DNR?: No Advance Directives: No Advance Directives Information Provided: Yes Advance Directives on File: No service: No Current occupational status: retired Cognitive needs: No Hearing needs: No Vision needs: Yes Meds Allergies Allergy/AdvReac Type Severity Reaction Status Date / Time sulfamethoxazole (From AdvReac Fatigued Verified 05/26/25 08:52 Bactrim) trimethoprim (From Bactrim) AdvReac Fatigued Verified 05/26/25 08:52 Assessment and Plan Assessment Anesthesia Assessment: Chart Reviewed Documented by User: Tonie Rawls MD 05/30/25 10:37 PMFSH Past Medical History Medical History (Updated 05/26/25 @ 09:42 by Katlin Villegas MD) Annual physical exam Microscopic hematuria Hyperglycemia Prostate cancer Neutropenia Family History Family History Mother Mental health disorder Family history of problems with anesthesia: No Surgical History Surgical History (Updated 05/26/25 @ 09:43 by Katlin Villegas MD) Hx of colonoscopy History of bilateral hip arthroplasty Hx of inguinal hernia repair Hx of heart surgery History of Problems with Anesthesia: No Social History Social History Household Members Other:: , lives alone, Housing: House Are you a primary assurance services manager health care to a significant other at home: No Do you presently have visiting nurse or other home services: No Patient Tobacco Use Status: Never used Tobacco e-Cigarette/Vaping Use: Never Used Second Hand Smoke Exposure: No Use of substances other than those prescribed or required for medical reasons: No Have you been hit, kicked, punched, or otherwise hurt by someone within the past year? If so, by whom?: No Are you DNR?: No Advance Directives: No Advance Directives Information Provided: Yes Advance Directives on File: No service: No Current occupational status: retired Cognitive needs: No Hearing needs: No Vision needs: Yes Meds Allergies Allergy/AdvReac Type Severity Reaction Status Date / Time sulfamethoxazole (From AdvReac Fatigued Verified 05/26/25 08:52 Bactrim) trimethoprim (From Bactrim) AdvReac Fatigued Verified 05/26/25 08:52 Exam Airway Mallampati Class: II (missing coupke teeth throughout, implant left lateral bottom) TM Dist: >3cm Neck ROM: Full Heart: rrr Lungs: cta Assessment and Plan Assessment Anesthesia Assessment: Anesthesia Plan Discussed Final Anesthetic Review Family History of Problems with Anesthesia: No History of Problems with Anesthesia: No NPO: Yes ASA Class: II Final Preanesthetic Review: No Changes in Pt Med Stat, Meds/Allgs Chart Reviewed and Consent Obtained/Reviewed Patient Risk: Low Procedure Risk: Low Anesthetic Plan Anesthetic Plan: GA Disposition: Standard PACU
[2025-05-26 07:20] VITALS: BMI 24.6
[2025-05-30 08:55] VITALS: BMI 25.4
[2025-05-30 09:13] VITALS: BP 122/72; PULSE 69; RESP 16; TEMP 36.4; O2SAT 97
[2025-05-30] MEDS: Lactated Ringers 1,000 ML 100 ML IVCONT (09:14)
--- NOTE | 2025-05-30 11:39 | P.HPSUR_ITS ---
Pre-Procedural Eval Section A - 24 Hr Update-Section A only Date of Service: 05/30/25 The patient is an INPATIENT: No Changes since office visit: No Cold of Flu in the past 2 weeks, No New Medical Problems, No Changes in Medication and No Patient answered all questions The patient has been examined within 24 hours of the surgical procedure. The History & Physical has been completed within 30 days and I have reviewed it.: No Section B - Complete if H&P > 30 days Chief Complaint: Retention of urine, unspecified Details of Present Illness: 160 g prostate. BPH. GreenLight laser enucleation prostate. Relevant Social History: None Present Medications: see Short Stay Collaborative assessment Medical History: No relevant PMH History of Previous Operations: No relevant previous surgery Allergies: Allergies Allergy/AdvReac Type Severity Reaction Status Date / Time sulfamethoxazole (From AdvReac Fatigued Verified 05/26/25 08:52 Bactrim) trimethoprim (From Bactrim) AdvReac Fatigued Verified 05/26/25 08:52 Review of Systems Sugical H&P ROS: Negative: Constitution, Cardiovascular, Respiratory, Neurological, Psychiatric, Hem-Onc, Allergic/Immunologic, Gastrointestinal, Andreea tourinary, Musculoskeletal, Integumentary, Endocrine and Eyes/Ears/Nose/Throat Exam Surgical H&P Exam: Normal: HEENT, Normal: Heart, Normal: Lungs, Normal: Extremities, Normal: Abdomen, Normal: Skin and Normal: Neurological Plan Diagnosis/Plan: Unchanged (160 g prostate) I have reviewed the history and physical and performed a pertinent physical examination on my patient. No changes have occurred unless specified. Time Spent With Patient Time: Total time managing care of this patient today ____ minutes.
--- NOTE | 2025-05-30 13:00 | P.OP_ITS ---
Operative Note Operative Note Date of Service: 05/30/25 Narrative: PreOperative Diagnosis: Bladder outlet obstruction Post Operative Diagnosis: Bladder outlet obstruction Procedure: GreenLight Laser Enucleation of the prostate CPT 43585 Surgeon: Dr Aries Purvis Anesthesia: General History of bladder outlet obstruction. Treated with alpha-valorie and other medications. Still with symptoms. On cystoscopy in office has trilobar prostate. Recommendation for prostate procedure with laser enucleation of prostate. MRI prostate volume 140 g. Risks and benefits have been discussed. Focus was placed on development of retrograde ejaculation which is a normal part of this procedure. Published revision rates are approximately 30-50% at 8-10 years following the procedure. Procedure: After informed consent was verified the patient was brought to the operating room and placed in a supine position. Anesthesia was administered per protocol. Patient was placed in modified dorsal lithotomy position and prepped and draped in a sterile fashion. Safety pause time-out was confirmed. Antibiotics have been given. A Twenty-four Bangladeshi laser cystoscope was inserted per urethra. No abnormalities were found of the anterior and bulbar urethra. The prostatic urethra shows trilobar hypertrophy. The bladder was examined and both ureteric orifices were seen in their normal positions away from the area of interest. Bladder trabeculation Grade 2/3. A GreenLight laser with attached pressure bag Normal Saline cooling irrigation was used. At initial setting of 80 hsieh incisions were made at the 5 and 7 o'clock position. The incisions were taken down from the bladder neck down to the area just proximal of the veru. These were gradually deepened in order to define the lateral aspects of the median lobe area and separate the lateral lobe areas from the median lobe.. The deep boundary of enucleation was defined by the prostate surgical capsule. Once clearly defined the grooves were extended in the lateral directions in order to create a deep groove and begin to undermined the lateral lobe areas.. The median lobe was then ablated and enucleated tissue released into the bladder with the laser power increased to 120 W. since the median lobe was rather large the 1st step was a vertical incision in order to cleave the median lobe into 2 pieces. Following the division the left side component was addressed first. Working from the lateral to medial aspect this was shaved down and pieces relea sed into the bladder. The right side median lobe was addressed in similar fashion. At this point the grooves were reestablished at 5 and 07:00 and any remnant intervening tissue was removed working in a left right fashion. Once the median lobe area had been cleared, attention was directed to the lateral lobes. Starting with the patient's left lateral lobe. First the 05:00 o'clock groove was further developed. This was moved in the lateral direction to undermine the tissue on the lateral side running from the bladder neck to the prostate apex. The ureteric orifice was used to guide incisions. The laser fiber was placed at the 1 o'clock position and a secondary groove was developed down to the level of prostatic capsule. The creation of a second deep groove defined a segment of intervening tissue similar to a slice of orange. At the apex of the prostate the laser was used to vertically link the two grooves releasing the intervening tissue and creating a segment of tissue. This tissue was then removed with a combination of enucleation and ablation working from the apex toward the bladder neck. A similar procedure was repeated on the patient's right-hand side. The only di fferences being the position of the lateral groove at the 7 o'clock position and the secondary groove at the 11 o'clock position, Otherwise the procedure was developed in a mirror fashion. Laser power was continued at 120 w with good efficiency. After the majority of tissue had been debulked remnant tissue was ablated with the side fire laser and the curve of the prostate followed up each side wall clearly defining the anterior remnant strip that remained between the 11 and 1 o'clock positions. In this case the anterior tissue protruded into the prostatic fossa and was partially ablated with the laser At completion debris and pieces of prostate were removed from the bladder with irrigation. Both ureteric orifices were reviewed again in shown to be patent in away from any areas of energy damage. Fluid was released from the prostate and inflow was ceased in order to evaluate the prostatic fossa for bleeding. The apical area was reviewed and any stray mucosal ooze was controlled. A 22 Bangladeshi 30 cc balloon Trejo catheter was placed into the bladder using a flexible stylet. Clear efflux was obtained upon irrigation with a Jolly piston syringe. 50 cc was placed in the balloon and gentle traction was placed. A snap was used to hold tension on the catheter to control bleeding during patient moved and transported. A drainage bag was placed. A belladonna and opiate suppository was placed in order to assist in postprocedure pain management. Once transportation is complete to the PACU the snap will be removed. The patient tolerated the procedure well, he was extubated in the operating and transferred in a stable condition to the recovery area. Total Power 155 kJ Lasing time 23:40 Pathology: Prostate tissue Drains: Trejo catheter
[2025-05-30 13:07] VITALS: BP 113/65; PULSE 73; RESP 16; TEMP 36.2; O2SAT 98
[2025-05-30 13:12] VITALS: BP 115/60; PULSE 62; RESP 16; O2SAT 99
[2025-05-30 13:17] VITALS: BP 106/61; PULSE 61; RESP 14; O2SAT 95
[2025-05-30 13:22] VITALS: BP 112/62; PULSE 60; RESP 14; O2SAT 96
[2025-05-30 13:37] VITALS: BP 110/61; PULSE 60; RESP 12; TEMP 36.2; O2SAT 96
== END 2025-05-30 14:16 | disposition home or self-care (01) ==
PROVIDERS: PCP Internal Medicine; Visit Provider Urology
PROC: (CPT 52648; principal; 2025-05-30 10:30)
DX: N32.0 Bladder-neck obstruction (principal); N40.1 Benign prostatic hyperplasia with lower urinary tract symptoms; R33.8 Other retention of urine; C61 Malignant neoplasm of prostate; Z79.899 Other long term (current) drug therapy; Z88.2 Allergy status to sulfonamides
CPT/HCPCS: 52649; 88305; J0131; J1100; J1956; J2003; J2250; J2405; J2704; J3010

== ENCOUNTER → 2025-05-30 08:30 | Outpatient (BNV) | payer MEDICARE, SELFPAY | PROVIDERS: PCP Internal Medicine; Visit Provider Urology | DX: N32.0 Bladder-neck obstruction (principal) | CPT/HCPCS: 52649 ==

== ENCOUNTER → 2025-06-01 09:28 | Outpatient (BNVA) | payer MEDICARE, SELFPAY | PROVIDERS: PCP Internal Medicine; Visit Provider Urology | DX: C61 Malignant neoplasm of prostate (principal) | CPT/HCPCS: 51700; 51798 ==